=== PATIENT | female | born 1945 | race Caucasian/White ===

== ENCOUNTER → 2018-12-31 | Outpatient (CLI) | payer MEDICARE, OTHER, SELFPAY ==
[2018-12-31 13:24] LABS: Anion Gap 6 (5-15); BUN 15 mg/dL (7-18); Calcium,Total 9.2 mg/dL (8.5-10.1); Chloride 111 mmol/L (98-107); Cholesterol 216 mg/dL (200); Creatinine, Serum 0.62 mg/dL (0.55-1.02); EST Glomerular Filtration Rate 99 mL/min (>60); Est Glom Filt Rate - Afr Amer 120 mL/min (>60); Glucose 90 mg/dL (74-106); High Density Lipoprotein 79 mg/dL; Sodium Level 144 mmol/L (136-145); Triglycerides 43 mg/dL; Very Low Density Lipoprotein 9 mg/dL (5-40)
== END | disposition home or self-care (01) ==
PROVIDERS: Family Provider Family Medicine; PCP Family Medicine; Visit Provider Family Medicine
DX: Z00.00 Encounter for general adult medical examination without abnormal findings (principal)
CPT/HCPCS: 36415; 80048; 80061

== ENCOUNTER 2019-06-20 08:14 | Day surgery (SDC) | payer MEDICARE, OTHER, SELFPAY ==
[2019-05-26 08:23] VITALS: BMI 24.3
--- NOTE | 2019-05-26 10:21 | HP_ITS ---
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 Is patient in pain?: Yes (bilateral wrists) Allergies acetaminophen [From Percocet] Allergy (Mild, Verified 05/26/19 08:24) Unknown oxycodone [From Percocet] Allergy (Mild, Verified 05/26/19 08:24) Unknown Medications NK 05/26/19 [History Confirmed 05/26/19] [facility] Medical History (Updated 05/26/19 @ 10:19 by Víctor Stahl MD) Carpal tunnel syndrome on both sides (Acute) Surgical History S/P bunionectomy (Acute) S/P cataract extraction (Acute) s/p finger surgery (Acute) Family History Mother Heart disease CVA (cerebral vascular accident) Social History (Updated 05/26/19 @ 10:21 by Víctor Stahl MD) Smoking Status: Never smoker alcohol intake: current alcohol intake frequency: a few times a month HPI HPI HPI: KAREEM VÁSQUEZ, is a 73 F who presents to the office today for HPI HPI Surgical H&P: Yes HPI: KAREEM VÁSQUEZ, is a 73 F who presents to the office today for surgical consultation for bilateral carpal tunnel syndrome. The patient is referred by Dr. Jose Velasquez and a written copy of my surgical consult recommendations will be returned to him. The patient has had at least a 2-year greater history of bilateral hand pain numbness tingling loss of fine motor control and artist suspect strength. 2 years ago she had a give up kayaking because of it. She states that at night if she keeps her hands perfectly flat and still that her symptoms are less severe. On January 13, 2019 at [facility] she had nerve conduction test performed. 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 Similar finding on the left. The patient herself has noticed atrophy of her thenar eminences bilaterally. She is right arm dominant. 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 General General: No weight change, appetite, fatigue, colon cancer, breast cancer or weakness HEENT HEENT: Yes eye injury and eye surgery; no difficulty swallowing, swollen glands or hoarseness Endo Endocrine: No thyroid disease, diabetes mellitus, thyroid cancer, Hair loss, heat intolerance or cold intolerance Skin Skin: No rash or changing moles Breast Breast: No left breast lump, right breast lump, nipple discharge, breast pain, abnormal mammogram, abnormal US or breast enlargement Musc Musculoskeletal: Yes arthritis; no back problems, rheumatoid arthritis, gout or joint pain Cardio Cardiovascular: No murmur, pacemaker, heart disease, atrial fibrillation, high blood pressure, heart attack, heart stent, palpitations, shortness of breat with exertion or chest pain Psych Psychiatric: No depression, anxiety or hearing voices Resp Respiratory: No shortness of breath, No sleep apnea, No cough, No COPD, No asthma, No emphysema, No wheezing Gastro Gastrointestinal: No abdominal pain, No nausea or vomiting, No diarrhea, No constipation, No blood in stool, No acid reflux, No hemorrhoids, No ulcers, No gallbladder problem, No black,tarry stools Mal Hematologic: No blood thinners, No blood disorders, No bleeding, No anemia, No blood clots Neuro Neurologic: No system reviewed and no additional complaints, except as docu, No as per HPI, No abnormal walking, No abnormal hearing, No abnormal movements, No abnormal speech, No behavioral changes, No burning sensations, No confusion, No seizure-like activity, No unsteadiness, No dizziness, No localized weakness, No frequent falls, No headache(s), No lack of coordination, No loss of vision, No memory loss, Yes numbness, No other visual disturbances, No radiating pain, No restless legs, No sensory deficit, No fainting, Yes tingling, No tremor(s), No weakness, No other Exam Const General: cooperative, healthy appearing, comfortable, no acute distress Nutritional Appearance: average body habitus Orientation: alert, awake, oriented x3 HENMT Head: normal to inspection Chest Breast Palpation: No nipple discharge Resp Effort & Inspection: normal respiratory effort Auscultation: clear to auscultation bilaterally Cardio Rate: regular rate Rhythm: regular rhythm Heart Sounds: no murmurs GI Palpation: soft, no hepatosplenomegaly Auscultation: normal bowel sounds Extrem Other: Bilateral wrists on the right ulnar side and left ulnar side volar surface there is some fibrofatty fullness. Ultrasound of the right demonstrated what appeared to be more of a mixed echogenicity pattern not consistent with a simple cyst. Bilaterally there is evidence are thenar atrophy Lumber Checker strength seems intact Radial pulses 2+ bilaterally Psych Affect: normal affect Assessment & Plan Problems 1. Carpal tunnel syndrome on both sides G56.03 Plan Bilateral carpal tunnel syndrome. The patient is right arm dominant. She states that her left hand is symptomatically worse. This appears to have been ongoing now for several years. She is demonstrating denervation. I have offered her a left carpal tunnel release. In detail I discussed the technique, benefits, risks and alternatives. No guarantees of success have been offered. She has had an opportunity to ask and have questions answered. Pending the results and improvement of her left hand the patient would then be interested in pursuing treatment of her right hand. The patient is planning on going overseas to [facility] in the near future. She is interested in scheduling upon her return. I appreciate the opportunity of assisting with her surgical care CC: Dr. Jose Stahl M.D., F.A.C.S. Coding Level of Care Code 47952 Diagnoses Carpal tunnel syndrome on both sides G56.03 05/26/19 1021 <Electronically signed by Víctor sands MD> Date _ Víctor Stahl MD I have re-examined the patient. There are no clinical changes since date of exam.
[2019-06-20 08:59] VITALS: BP 147/82; PULSE 71; RESP 15; TEMP 36.9; O2SAT 99; BMI 25.3
[2019-06-20] MEDS: Lactated Ringers 1,000 ML 100 ML IV (09:10)
--- NOTE | 2019-06-20 10:18 | DCINST_ITS ---
Discharge Diet: Light diet - advance as tolerated - if you have questions about your diet instructions, please talk to you doctor. Discharge Activity: May Not Drive - for 1 week or while taking narcotic pain medicine. May shower in (days): 1 - You will need to place your left hand in a bag to keep it dry from water Lifting Restrictions: 10 pounds Call your doctor if your incision/area has: Continuous Slow Oozing, Sudden Increased Bleeding, Increased Pain/ Swelling, Increased Redness, Foul Smelling Discharge Call your doctor if you observe: Fever of 101 or Higher Suture Line Care: Avoid Pulling/Pushing, Avoid Pinching/Bending Additional Dressing/Incision Instructions:: Elevate your left hand for comfort. Please keep it clean and dry. No heavy lifting or straining. Allergies/Adverse Reactions: Allergies oxycodone [From Percocet] Allergy (Mild, Verified 06/20/19 08:54) Unknown Medications to take at Discharge traMADol [Ultram] 50 mg PO Q4H PRN PRN 2 Days #5 tablet 06/20/19 The following prescriptions were given: traMADol [Ultram] 50 mg PO Q4H PRN PRN 2 Days #5 tablet PRN Reason: Pain Score 1-10/10 Transmission Status: Sent to [facility] Primary Care Physician: Jose Velasquez MD [Primary Care Provider] - Test Results: Test results from this visit will be discussed in further detail at your follow- up appointment, if applicable. Please Follow Up With: Víctor Stahl MD - [phone] When: Call to make an appointment to be seen in about 7 days--Thursday
[2019-06-20] MEDS: Bacitracin 500 UNITS/GM PACKET (10:31)
[2019-06-20] MEDS: Bupivacaine Mpf 0.5% 30 ML VIAL (10:33)
--- NOTE | 2019-06-20 10:38 | OP.PCM_ITS ---
Problem List (1) Left carpal tunnel syndrome Status: Acute Report of Operation Date of Procedure: 06/20/19 Pre-Operative Diagnosis: Left carpal tunnel syndrome Post-Operative Diagnosis: Same Surgery/Procedure Performed:: Left carpal tunnel release Description of Surgical Findings:: Timeout and informed consent was obtained. 73-year-old female was taken out from placement table. The left hand was sterilely prepped and draped after [place] block was performed to 250 mmHg pressure for a total of 21 minutes. A curvilinear incision was made the base of the left palm after sterile prep and draping. The palmar fascia was then identified it was incised and then was incised to the proximal wrist crease along the fourth ray to the mid palm. Good release the palmar fascia was easily achieved. Median nerve intact. Subdermal tissues were approximated with interrupted 4-0 chromic. Skin edges approximated simple sutures of 5-0 nylon. Antibiotic ointment Telfa 4 x 4 soft roll Ignacio wrap applied. Sponge and instrument and needle counts reported surgical correct. The edd-incisional area had been additionally anesthetized with 1 cc of 0.5% Marcaine. Specimens none. Drains none. Blood loss minimal. Víctor Stahl M.D., F.A.C.S. Type of Anesthesia:: Hesham Aguilera, Local Anesthesiologist: Ino Davis
[2019-06-20 10:45] VITALS: BP 116/68; BP 147/82; PULSE 74; RESP 16; TEMP 36.6; O2SAT 18
[2019-06-20 10:50] VITALS: BP 131/72; BP 147/82; PULSE 67; RESP 16; O2SAT 97
[2019-06-20 10:55] VITALS: BP 131/70; BP 147/82; PULSE 64; RESP 16; O2SAT 94
[2019-06-20 11:00] VITALS: BP 134/72; BP 147/82; PULSE 62; RESP 16; TEMP 37; O2SAT 97
[2019-06-20 11:30] VITALS: BP 147/82
== END 2019-06-20 12:26 | disposition home or self-care (01) ==
LOC: SDC 08:17 → AC 08:20
PROVIDERS: Family Provider Family Medicine; PCP Family Medicine; Referring Provider Surgery; Visit Provider Surgery
PROC: (CPT 64721; principal; 2019-06-20 10:00)
DX: G56.03 Carpal tunnel syndrome, bilateral upper limbs (principal); M19.90 Unspecified osteoarthritis, unspecified site; Z78.0 Asymptomatic menopausal state
CPT/HCPCS: 01810; 64721; J7120; J2405

== ENCOUNTER 2019-07-14 10:59 | Day surgery (SDC) | payer MEDICARE, OTHER, SELFPAY ==
[2019-05-26 08:23] VITALS: BMI 24.3
--- NOTE | 2019-05-26 10:21 | HP_ITS ---
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 Is patient in pain?: Yes (bilateral wrists) Allergies acetaminophen [From Percocet] Allergy (Mild, Verified 05/26/19 08:24) Unknown oxycodone [From Percocet] Allergy (Mild, Verified 05/26/19 08:24) Unknown Medications NK 05/26/19 [History Confirmed 05/26/19] [facility] Medical History (Updated 05/26/19 @ 10:19 by Víctor Stahl MD) Carpal tunnel syndrome on both sides (Acute) Surgical History S/P bunionectomy (Acute) S/P cataract extraction (Acute) s/p finger surgery (Acute) Family History Mother Heart disease CVA (cerebral vascular accident) Social History (Updated 05/26/19 @ 10:21 by Víctor Stahl MD) Smoking Status: Never smoker alcohol intake: current alcohol intake frequency: a few times a month HPI HPI HPI: KAREEM VÁSQUEZ, is a 73 F who presents to the office today for HPI HPI Surgical H&P: Yes HPI: KAREEM VÁSQUEZ, is a 73 F who presents to the office today for surgical consultation for bilateral carpal tunnel syndrome. The patient is referred by Dr. Jose Velasquez and a written copy of my surgical consult recommendations will be returned to him. The patient has had at least a 2-year greater history of bilateral hand pain numbness tingling loss of fine motor control and t rail turner strength. 2 years ago she had a give up kayaking because of it. She states that at night if she keeps her hands perfectly flat and still that her symptoms are less severe. On January 13, [address] [facility] she had nerve conduction test performed. 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 Similar finding on the left. The patient herself has noticed atrophy of her thenar eminences bilaterally. She is right arm dominant. 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 General General: No weight change, appetite, fatigue, colon cancer, breast cancer or weakness HEENT HEENT: Yes eye injury and eye surgery; no difficulty swallowing, swollen glands or hoarseness Endo Endocrine: No thyroid disease, diabetes mellitus, thyroid cancer, Hair loss, heat intolerance or cold intolerance Skin Skin: No rash or changing moles Breast Breast: No left breast lump, right breast lump, nipple discharge, breast pain, abnormal mammogram, abnormal US or breast enlargement Musc Musculoskeletal: Yes arthritis; no back problems, rheumatoid arthritis, gout or joint pain Cardio Cardiovascular: No murmur, pacemaker, heart disease, atrial fibrillation, high blood pressure, heart attack, heart stent, palpitations, shortness of breat with exertion or chest pain Psych Psychiatric: No depression, anxiety or hearing voices Resp Respiratory: No shortness of breath, No sleep apnea, No cough, No COPD, No asthma, No emphysema, No wheezing Gastro Gastrointestinal: No abdominal pain, No nausea or vomiting, No diarrhea, No constipation, No blood in stool, No acid reflux, No hemorrhoids, No ulcers, No gallbladder problem, No black,tarry stools Mal Hematologic: No blood thinners, No blood disorders, No bleeding, No anemia, No blood clots Neuro Neurologic: No system reviewed and no additional complaints, except as docu, No as per HPI, No abnormal walking, No abnormal hearing, No abnormal movements, No abnormal speech, No behavioral changes, No burning sensations, No confusion, No seizure-like activity, No unsteadiness, No dizziness, No localized weakness, No frequent falls, No headache(s), No lack of coordination, No loss of vision, No memory loss, Yes numbness, No other visual disturbances, No radiating pain, No restless legs, No sensory deficit, No fainting, Yes tingling, No tremor(s), No weakness, No other Exam Const General: cooperative, healthy appearing, comfortable, no acute distress Nutritional Appearance: average body habitus Orientation: alert, awake, oriented x3 HENMT Head: normal to inspection Chest Breast Palpation: No nipple discharge Resp Effort & Inspection: normal respiratory effort Auscultation: clear to auscultation bilaterally Cardio Rate: regular rate Rhythm: regular rhythm Heart Sounds: no murmurs GI Palpation: soft, no hepatosplenomegaly Auscultation: normal bowel sounds Extrem Other: Bilateral wrists on the right ulnar side and left ulnar side volar surface there is some fibrofatty fullness. Ultrasound of the right demonstrated what appeared to be more of a mixed echogenicity pattern not consistent with a simple cyst. Bilaterally there is evidence are thenar atrophy Elevators Inspector strength seems intact Radial pulses 2+ bilaterally Psych Affect: normal affect Assessment & Plan Problems 1. Carpal tunnel syndrome on both sides G56.03 Plan Bilateral carpal tunnel syndrome. The patient is right arm dominant. She states that her left hand is symptomatically worse. This appears to have been ongoing now for several years. She is demonstrating denervation. I have offered her a left carpal tunnel release. In detail I discussed the technique, benefits, risks and alternatives. No guarantees of success have been offered. She has had an opportunity to ask and have questions answered. Pending the results and improvement of her left hand the patient would then be interested in pursuing treatment of her right hand. The patient is planning on going overseas to [facility] in the near future. She is interested in scheduling upon her return. I appreciate the opportunity of assisting with her surgical care CC: Dr. Jose Stahl M.D., F.A.C.S. Coding Level of Care Code 48307 Diagnoses Carpal tunnel syndrome on both sides G56.03 Plan to proceed with a right carpal tunnel release. Patient has had an opportunity to ask and have questions answered. We will proceed at her discretion. She has had a successful treatment of her left forearm carpal tunnel Víctor Stahl M.D., F.A.C.S.
[2019-07-14 11:36] VITALS: BP 147/82; PULSE 66; RESP 16; TEMP 36.9; O2SAT 95; BMI 25.0
[2019-07-14] MEDS: Lactated Ringers 1,000 ML 100 ML IV (11:46)
--- NOTE | 2019-07-14 13:05 | DCINST_ITS ---
Discharge Diet: Light diet - advance as tolerated Discharge Activity: May Not Drive - for 2-3 days or while taking narcotic pain medications., - - Do not drive, work heavy equipment or sign legal documents for 24 hours. May shower in (days): 1 - with the bandage in place. Additional Activity Instructions:: Pain medication may cause nausea. You should typically eat light foods as you take your pain medications. Pain medication may also cause constipation. If this is a problem for you, please discuss with your doctor. Call your doctor if your incision/area has: Continuous Slow Oozing, Sudden Increased Bleeding, Increased Pain/ Swelling, Increased Redness, Foul Smelling Discharge Call your doctor if you observe: Fever of 101 or Higher Suture Line Care: Avoid Pulling/Pushing, Avoid Pinching/Bending Additional Dressing/Incision Instructions:: Please elevate your right hand for comfort. Keep the elastic wrap clean and dry. Allergies/Adverse Reactions: Allergies oxycodone [From Percocet] Allergy (Mild, Verified 07/14/19 11:35) Unknown Medications to take at Discharge NK 06/27/19 Primary Care Physician: Jose Velasquez MD [Primary Care Provider] - Test Results: Test results from this visit will be discussed in further detail at your follow- up appointment, if applicable. Please Follow Up With: Víctor Stahl MD - Please call [phone] to schedule an appointment. When: Office appointment on Thursday please 07/19/19
--- NOTE | 2019-07-14 14:38 | SUR.OPER ---
Pt was brought back to the OR, sedation given, when notified Dr was needed in another room, time between entering room and incision time represents this
[2019-07-14] MEDS: Bupivacaine Mpf 0.5% 30 ML VIAL (14:48)
[2019-07-14] MEDS: Neomycin/Bacitracin/Polymyxin Ointment 1 APPLIC (14:48)
--- NOTE | 2019-07-14 14:52 | OP.PCM_ITS ---
Report of Operation Date of Procedure: 07/14/19 Pre-Operative Diagnosis: Right carpal tunnel syndrome Post-Operative Diagnosis: Same Surgery/Procedure Performed:: Right carpal tunnel release Description of Surgical Findings:: Timeout and informed consent was obtained. 74-year-old female taken out from placement table underwent [place] block anesthesia. Tourniquet pressure to 250 mmHg pressure held for 27 minutes. The right hand was sterilely prepped and draped. A curvilinear incision made the base the right palm sharp dissection carried down through the subcu tissue the palmar fascia was incised median nerve identified protected the palmar fascia was incised to the proximal wrist crease and then along the fourth ray to the mid palm. Good release was felt to been achieved. The subdermal tissues were approximated up with 3-0 chromic. Skin is approximated simple sutures of 4-0 nylon. The edd-incisional areas anesthetized with 0.5% Marcaine a total of 3 cc was used. Antibiotic ointment Telfa 4 x 4 soft roll and Ignacio wrap applied. Sponge and instrument and needle counts were reported the surgeon be correct. Blood loss none. Specimens none. Drains none. Blood loss none. She was taken to the recovery area in satisfactory edition with apparent cavitation Víctor Stahl M.D., F.A.C.S. Type of Anesthesia:: Willy,Hesham, Local Anesthesiologist: Suresh Michaud
[2019-07-14 15:00] VITALS: BP 138/89; BP 147/82; PULSE 71; RESP 16; TEMP 36.6; O2SAT 99
[2019-07-14 15:05] VITALS: BP 125/95; BP 147/82; PULSE 70; RESP 16; O2SAT 94
[2019-07-14 15:10] VITALS: BP 118/98; BP 147/82; PULSE 65; RESP 16; O2SAT 98
[2019-07-14 15:15] VITALS: BP 137/85; BP 147/82; PULSE 67; RESP 16; TEMP 36.4; O2SAT 98
[2019-07-14] MEDS: Acetaminophen 325 MG Tablet 650 MG PO (15:38)
[2019-07-14 16:12] VITALS: BP 123/67; BP 147/82; PULSE 78; RESP 16; TEMP 36.2; O2SAT 95
== END 2019-07-14 16:15 | disposition home or self-care (01) ==
LOC: SDC 11:00 → AC 11:01
PROVIDERS: Family Provider Family Medicine; PCP Family Medicine; Referring Provider Surgery; Visit Provider Surgery
PROC: (CPT 64721; principal; 2019-07-14 12:45)
DX: G56.03 Carpal tunnel syndrome, bilateral upper limbs (principal); Z78.0 Asymptomatic menopausal state
CPT/HCPCS: 64721; J7120

== ENCOUNTER 2021-01-01 08:25 | Day surgery (SDC) | payer MEDICARE, OTHER, SELFPAY ==
[2020-12-28 09:36] VITALS: BMI 25.0
--- NOTE | 2021-01-01 08:46 | PCM.HP.BLA ---
History and Physical Date of Admission: 01/01/21 Date of Service:? 12/28/20 MR#: [id number] Acct: [id number] Name:?KAREEM VÁSQUEZ :1945 Age/Sex:?75/F Provider:Dr. Ana Avelar MD Rep #:[id number] Location:[facility] Status:Signed Intake Vital Signs ? 12/28/2108:35 12/28/2108:36 Height 5 ft ? Weight: 129 lb 8 oz ? BMI 25.2 25.0 BP 152/97 H ? Blood Pressure Location Rt brachial ? Position Sitting ? Respiration 18 ? Pulse 81 ? Pulse Source NIBP ? Temp 97.6 F L ? Temp Source Temporal ? Pulse Oximetry (%) 98 ? Oxygen Delivery Method room air ? 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 Carpal tunnel syndrome on both sides Surgical History? S/P bunionectomy S/P cataract extraction s/p finger surgery s/p left carpal tunnel release s/p right carpal tunnel release Family History?(Updated 12/28/20 @ 09:27 by Britta Truong) Mother Heart disease CVA (cerebral vascular accident)Father Emphysema of lung DementiaGrandmother Cancer ?? ? lymphoma CVA (cerebral vascular accident) Social History? Smoking Status:? Never smoker alcohol intake:? current alcohol intake frequency: a few times a month HPI HPI HPI: KAREEM VÁSQUEZ, is a 75 F who presents to the office today for positive Cologuard.? Patient notes her last colonoscopy was maybe in 2008 at [facility].? Patient states she has bowel once daily denies any blood denies any abdominal pain.? Patient states for the last 3 days she has had some reflux symptoms and did start some [id number] Prilosec.? Patient states this started when she found out the results of the Cologuard test.? Patient denies any family history of colon cancer.? Patient has had both doses of the Covid vaccine. ROS Gastro Gastrointestinal: No abdominal pain, No nausea or vomiting, No diarrhea, No constipation, No blood in stool, Yes acid reflux, No hemorrhoids, No ulcers, No gallbladder problem and No black,tarry stools Exam Const General: cooperative, healthy appearing, comfortable and no acute distress Neck Neck: normal visual inspection Resp Effort & Inspection: normal respiratory effort Cardio Rate: regular rate GI Inspection: non-distended Palpation: soft, no guarding and nontender Skin General: no rashes or lesions noted Neuro General: patient oriented x3 Psych Affect: normal affect COVID (Procedure Consent) Procedure Criteria Procedure Criteria: Yes Elective?The surgeon/proceduralist and patient have discussed in detail the risk of exposure to and/or potential harm posed by the COVID-19 virus with having a surgery/procedure at this time versus the risk of? delaying the surgery/procedure. It is not possible to know either the risk of delaying the surgery or procedure or chance of getting an infection with perfect accuracy, but a joint decision was made between the patient and the surgeon/proceduralist ?to proceed at this time with the scheduled surgery/procedure as indicated on the consent form. Assessment and Plan Assessment and Plan (1) Positive colorectal cancer screening using Cologuard test: ?Status:?Acute ?Plan - Dr. Ana Avelar MD: Okay to complete at 2-week dose of the Prilosec [id number]. I have discussed the above with the patient. I have offered the patient EGD and colonoscopy for evaluation. I have explained the risks/benefits of the procedure and described the procedure.? I have discussed the risks with the patient, including but not limited to:? infection, bleeding, perforation of the GI tract requiring emergency surgery, inability to complete the procedure, injury to any internal organs, complications of anesthesia, etc. - the patient understands and agrees to proceed. I have answered all the patient's questions to the patient's satisfaction and the patient has no further questions. The patient has been given instructions for the colon cleansing preparation.? 1 day of clears, MiraLAX Dulcolax split prep. Ana Avelar M.D. Pager: [phone] [facility] [address] [place] [address], [address] [place] [address] Office: [phone] (2) GERD (gastroesophageal reflux disease): ?Status:?Acute Plan Details Other Orders: ?Orders: ? Colonoscopy Today ? ? ? EGD Today ? ? Coding Level of Care Code Off vis,new,level 3 Diagnoses Positive colorectal cancer screening using Cologuard test? R19.5 GERD (gastroesophageal reflux disease)? K21.9 12/28/20 0953 <Electronically signed by Ana Avelar MD> Date Ana Avelar MD
[2021-01-01 08:59] VITALS: BP 124/70; PULSE 61; RESP 16; TEMP 37; O2SAT 98; BMI 23.9
[2021-01-01] MEDS: Lactated Ringers 1,000 ML 100 ML IV (09:13)
--- NOTE | 2021-01-01 09:30 | EGD_PTH ---
PATIENT: KAREEM VÁSQUEZ LOC: EN U#:[id number] AGE/SX: 75/F ROOM: RE01/01/[address]: Dr. Ana Avelar MD : 1945 BED: DIS: 01/01/2021 SPEC #: [id number] RECD: 01/01/21 11:31 STATUS: SETH REBhargav #: [id number] HENRY: 01/01/21 09:[address]: Ana Avelar DEPT: SURGICAL PATHOLOGY RECD BY: Irma Carr ENTERED: 01/01/21 11:45 SP TYPE: EGD BIOPSY OT DR: Dr. Jose Velasquez MD Tissues: A - Gastric mucous membrane B - Gastric mucous membrane C - Gastric mucous membrane D - Cecum, NOS E - Transverse colon Procedures: Special Stain Group II Surgery Specimen Level IV Alcian Blue/PAS (control) HEADER OPERATION: Colonoscopy, EGD ([facility] [place]) PRE-OP DIAGNOSIS: Positive Cologuard, GERD TISSUE SUBMITTED: A ? Antrum for H. pylori and path, B ? Gastric polyp biopsy, C ? GE junction, D ? Cecum near appendiceal orifice biopsy of polyp, E ? Transverse colon biopsy of polyp MICROSCOPIC DIAGNOSIS A. Gastric antrum, biopsy: Mild chronic gastritis. See comment. B. Gastric polyp, biopsy: Consistent with fundic gland polyp. C. GE junction, biopsy: Gastric mucosa with mild chronic inflammation. No evidence of goblet cell metaplasia. See comment. D. Cecal polyp, biopsy: Tubular adenoma. E. Transverse colon polyp, biopsy: Fragments of hyperplastic polyp. AM:ese 01/02/2021 COMMENT A. The results of immunohistochemistry for Helicobacter pylori will be reported separately ([id number]). C. Alcian blue/PAS stain with matched control supports the above diagnosis. MICROSCOPIC DESCRIPTION Slides are reviewed. GROSS DESCRIPTION A - Received in fixative is one container labeled with the patient's name and designated antrum biopsy. The specimen consists of one irregular fragment of light coronel soft tissue that measures 0.7 x 0.2 x 0.1 cm. The specimen is totally submitted in one cassette. B - Received in fixative is one container labeled with the patient's name and designated gastric polyp biopsy. The specimen consists of multiple irregular fragments of light coronel soft tissue that in aggregate measure 1.5 x 0.5 x 0.1 cm. The specimen is totally submitted in one cassette. C - Received in fixative is one container labeled with the patient's name and designated GE junction. The specimen consists of one irregular fragment of light coronel soft tissue that measures 0.3 x 0.2 x 0.1 cm. The specimen is totally submitted in one cassette. D - Received in fixative is one container labeled with the patient's name and designated cecum near appendiceal orifice biopsy of polyp. The specimen consists of multiple irregular fragments of light coronel soft tissue that in aggregate measure 1 x 0.2 x 0.1 cm. The specimen is totally submitted in one cassette. E - Received in fixative is one container labeled with the patient's name and designated transverse colon biopsy of polyp. The specimen consists of multiple irregular fragments of light coronel soft tissue that in aggregate measure 1 x 0.2 x 0.1 cm. The specimen is totally submitted in one cassette. / SJ:rg 01/01/21 TC:5 CPT: 26315 x5, 32616
--- NOTE | 2021-01-01 09:30 | IMM_PTH ---
PATIENT: KAREEM VÁSQUEZ LOC: EN U#:[id number] AGE/SX: 75/F ROOM: RE01/01/[address]: Dr. Ana Avelar MD : 1945 BED: DIS: 01/01/2021 SPEC #: [id number] RECD: 01/01/21 12:03 STATUS: SETH REQ #: [id number] HENRY: 01/01/21 09:[address]: Ana Avelar DEPT: IMMUNOHISTOCHEMISTRY RECD BY: Sondra López ENTERED: 01/01/21 12:03 SP TYPE: IMMUNO OTHR DR: Dr. Jose Velasquez MD Tissues: A - Stomach, NOS Procedures: H Pylori (initial) PHYSICIAN & INSTITUTION [place] [address] SPECIMEN INFORMATION: Tissue Source: A ? Antrum biopsy Clinical Info: Positive ROLANDO Mclain Specimen Number: [id number] CPT code: 32701 METHODOLOGY: Deparaffinized sections of prefer/formalin-fixed tissue or PAP/DQ stained slides are incubated with monoclonal/polyclonal antibodies/oligonucleotide probes. Localization is made via biotin free immunoperoxidase method. Appropriate controls are performed and reacted as expected. Results on target cell population are indicated in the following table: RESULTS: ANTIBODY / CLONE RESULT Block A H Pylori (polyclonal) negative These tests were developed and their performance characteristics determined by [facility]. They may not have been cleared or approved by the U.S. Food and Drug Administration. The FDA has determined that such clearance or approval is not necessary. INTERPRETATION: A. Antrum biopsy: Negative for Helicobacter pylori organisms. AM:ese 01/02/2021
[2021-01-01 10:15] VITALS: BP 118/77; BP 124/70; PULSE 67; RESP 16; TEMP 36.4; O2SAT 99
--- NOTE | 2021-01-01 10:18 | OP.EGD_ITS ---
Patient Name: Billie Kellogg Procedure Date: 01/01/2021 9:28 AM Date of : 1945 Age: 75 Procedure: Upper GI endoscopy Indications: Heartburn, +cologuard Providers: Ana Avelar MD Medicines: Monitored Anesthesia Care Patient Profile: This is a 75 year old female. Complications: No immediate complications. Procedure: Pre-Anesthesia Assessment: - Prior to the procedure, a History and Physical was performed, and patient medications and allergies were reviewed. The patient's tolerance of previous anesthesia was also reviewed. The risks and benefits of the procedure and the sedation options and risks were discussed with the patient. All questions were answered, and informed consent was obtained. Prior Anticoagulants: The patient has taken aspirin, last dose was 1 day prior to procedure. ASA Grade Assessment: Per anesthesia. After reviewing the risks and benefits, the patient was deemed in satisfactory condition to undergo the procedure. After obtaining informed consent, the endoscope was passed under direct vision. Throughout the procedure, the patient's blood pressure, pulse, and oxygen saturations were monitored continuously. The Endoscope was introduced through the mouth, and advanced to the second part of duodenum. The upper GI endoscopy was accomplished without difficulty. The patient tolerated the procedure well. Scope In: 9:36:05 AM Scope Out: 9:48:27 AM Total Procedure Duration Time 0 hours 12 minutes 22 seconds Findings: The Z-line was irregular and was found 38 cm from the incisors. Biopsies were taken with a cold forceps for histology. A small hiatal hernia was present. Moderately erythematous mucosa without bleeding was found in the gastric body and in the gastric antrum. Biopsies were taken with a cold forceps for histology. Biopsies were taken with a cold forceps for Helicobacter pylori cultures. The examined duodenum was normal. Three less than 5 mm semi-sessile polyps with no bleeding and no stigmata of recent bleeding were found in the gastric body. The polyp was removed with a cold biopsy forceps. Resection and retrieval were complete. Segmental moderate mucosal variance characterized by discoloration and longitudinal markings was found at the gastroesophageal junction. Biopsies were taken with a cold forceps for histology. Impression: - Z-line irregular, 38 cm from the incisors. Biopsied. - Small hiatal hernia. - Erythematous mucosa in the gastric body and antrum. Biopsied. - Normal examined duodenum. - Three gastric polyps. Resected and retrieved. - Esophageal mucosal variant. Biopsied. Recommendation: - Await pathology results. - Discharge patient to home. - Resume previous diet. - Continue present medications. - Use Protonix (pantoprazole) 40 mg PO daily. Procedure Code(s): --- Professional --- 39075, Esophagogastroduodenoscopy, flexible, transoral; with biopsy, single or multiple Diagnosis Code(s): --- Professional --- K22.8, Other specified diseases of esophagus K44.9, Diaphragmatic hernia without obstruction or gangrene K31.89, Other diseases of stomach and duodenum K31.7, Polyp of stomach and duodenum R12, Heartburn CPT copyright 2017 [employer]. All rights reserved. The codes documented in this report are preliminary and upon soft work cigar machine operator review may be revised to meet current compliance requirements. MD Ana Mendoza MD 01/01/2021 10:18:00 AM This report has been signed electronically. Number of Addenda: 0 Note Initiated On: 01/01/2021 9:28 AM
--- NOTE | 2021-01-01 10:18 | OP.CCLET_ITS ---
01/01/2021 Jose Velasquez Re : Upper GI endoscopy procedure for Billie Kellogg Dear Ron This procedure was performed on Friday, January 01, 2021. My impressions and recommendations are as follows: Impressions : - Z-line irregular, 38 cm from the incisors. Biopsied. - Small hiatal hernia. - Erythematous mucosa in the gastric body and antrum. Biopsied. - Normal examined duodenum. - Three gastric polyps. Resected and retrieved. - Esophageal mucosal variant. Biopsied. Recommendations : - Await pathology results. - Discharge patient to home. - Resume previous diet. - Continue present medications. - Use Protonix (pantoprazole) 40 mg PO daily. My findings are described in the full procedure note, which is enclosed. If I can be of further assistance, please feel free to contact me at Doctor phone number(s): , Work: . Sincerely, MD Ana Mendoza MD 01/01/2021 10:18:00 AM This report has been signed electronically.
[2021-01-01 10:20] VITALS: BP 124/70; BP 126/77; PULSE 65; RESP 16; O2SAT 98
--- NOTE | 2021-01-01 10:22 | OP.CCLET_ITS ---
01/01/2021 Jose Velasquez Re : Colonoscopy procedure for Billie Kellogg Dear Ron This procedure was performed on Friday, January 01, 2021. My impressions and recommendations are as follows: Impressions : - Hemorrhoids found on perianal exam. - No specimens collected. Recommendations : - Discharge patient to home. - High fiber diet. - Continue present medications. - Await pathology results. - Repeat colonoscopy in 5 years for surveillance based on pathology results. My findings are described in the full procedure note, which is enclosed. If I can be of further assistance, please feel free to contact me at Doctor phone number(s): , Work: . Sincerely, MD Ana Mendoza MD 01/01/2021 10:22:13 AM This report has been signed electronically.
--- NOTE | 2021-01-01 10:22 | OP.COLON_ITS ---
Patient Name: Billie Kellogg Procedure Date: 01/01/2021 9:49 AM Date of : 1945 Age: 75 Procedure: Colonoscopy Indications: Positive Cologuard test Providers: Ana Avelar MD Medicines: Monitored Anesthesia Care Patient Profile: This is a 75 year old female. Last Colonoscopy: more than 10 years ago. Complications: No immediate complications. Procedure: Pre-Anesthesia Assessment: - Prior to the procedure, a History and Physical was performed, and patient medications and allergies were reviewed. The patient's tolerance of previous anesthesia was also reviewed. The risks and benefits of the procedure and the sedation options and risks were discussed with the patient. All questions were answered, and informed consent was obtained. Prior Anticoagulants: The patient has taken aspirin, last dose was 1 day prior to procedure. ASA Grade Assessment: Per anesthesia. After reviewing the risks and benefits, the patient was deemed in satisfactory condition to undergo the procedure. After I obtained informed consent, the scope was passed under direct vision. Throughout the procedure, the patient's blood pressure, pulse, and oxygen saturations were monitored continuously. The colonoscope was introduced through the anus and advanced to the cecum, identified by the appendiceal orifice, ileocecal valve and palpation. The colonoscopy was performed without difficulty. The patient tolerated the procedure well. The quality of the bowel preparation was good. Scope In: 9:50:33 AM Scope Withdrawal Time 0 hours 12 minutes 26 seconds Scope Out: 10:09:01 AM Total Procedure Duration Time 0 hours 18 minutes 28 seconds Findings: Hemorrhoids were found on perianal exam. Two sessile polyps were found in the transverse colon and cecum-near appendiceal oriface. The polyps were less than 5 mm in size. These polyps were removed with a cold biopsy forceps. Resection and retrieval were complete. A few small-mouthed diverticula were found in the sigmoid colon and hepatic flexure. Non-bleeding external and internal hemorrhoids were found. The hemorrhoids were Grade I (internal hemorrhoids that do not prolapse). The exam was otherwise without abnormality. Impression: - Hemorrhoids found on perianal exam. - No specimens collected. Recommendation: - Discharge patient to home. - High fiber diet. - Continue present medications. - Await pathology results. - Repeat colonoscopy in 5 years for surveillance based on pathology results. Procedure Code(s): --- Professional --- 18311, Colonoscopy, flexible; with biopsy, single or multiple Diagnosis Code(s): --- Professional --- K64.9, Unspecified hemorrhoids R19.5, Other fecal abnormalities CPT copyright 2017 [employer]. All rights reserved. The codes documented in this report are preliminary and upon credit director review may be revised to meet current compliance requirements. MD Ana Mendoza MD 01/01/2021 10:22:13 AM This report has been signed electronically. Number of Addenda: 0 Note Initiated On: 01/01/2021 9:49 AM
[2021-01-01 10:25] VITALS: BP 124/70; BP 131/73; PULSE 61; RESP 16; O2SAT 100
[2021-01-01 10:30] VITALS: BP 124/70; BP 128/74; PULSE 61; RESP 16; TEMP 36.3; O2SAT 100
[2021-01-01 10:44] VITALS: BP 124/70
== END 2021-01-01 11:01 ==
LOC: EN 08:26 → AC 08:27
PROVIDERS: PCP Family Medicine; Referring Provider Family Medicine; Visit Provider Surgery
PROC: 0DJD8ZZ Inspection of Lower Intestinal Tract, Via Natural or Artificial Opening Endoscopic (ICD-10-PCS; CPT 45378; principal; 2021-01-01 09:25)
DX: K29.50 Unspecified chronic gastritis without bleeding (principal); K31.7 Polyp of stomach and duodenum; K44.9 Diaphragmatic hernia without obstruction or gangrene; K21.9 Gastro-esophageal reflux disease without esophagitis; D12.0 Benign neoplasm of cecum; K63.5 Polyp of colon; K57.30 Diverticulosis of large intestine without perforation or abscess without bleeding; K64.9 Unspecified hemorrhoids; K64.8 Other hemorrhoids
CPT/HCPCS: 43239; 45378; 88305; 88313; 88342; J7120; J2405

== ENCOUNTER → 2023-01-01 | Outpatient (CLI) | payer MEDICARE, OTHER, SELFPAY ==
[2023-01-01 17:41] LABS: ALB/GLOB Ratio 0.9 RATIO (0.9-2.4); AST(SGOT) 25 U/L (15-37); Alanine Aminotransfer ALT/SGPT 27 U/L (13-56); Albumin, Serum 3.5 g/dL (3.2-5.0); Alkaline Phosphatase 109 U/L (45-117); Anion Gap 3 (5-15); BUN 11 mg/dL (7-18); Calcium,Total 9.5 mg/dL (8.5-10.1); Chloride 107 mmol/L (98-107); Creatinine, Serum 0.73 mg/dL (0.55-1.02); EST Glomerular Filtration Rate 82 mL/min (>60); Est Glom Filt Rate - Afr Amer 99 mL/min (>60); Globulin 3.7 g/dL (2.2-4.2); Glucose 92 mg/dL (74-106); Potassium 4.2 mmol/L (3.5-5.1); Protein, Total 7.2 g/dL (6.4-8.2); Sodium Level 139 mmol/L (136-145)
== END | disposition home or self-care (01) ==
PROVIDERS: PCP Family Medicine; Visit Provider Registered Nurse
DX: U07.1 COVID-19 (principal)
CPT/HCPCS: 80053

== ENCOUNTER → 2023-10-14 | Outpatient (CLI) | payer MEDICARE, OTHER, SELFPAY ==
--- OUTSIDE RECORDS SUMMARY | 2023-10-14 11:12 | XMS RPT_ITS | CCD ---
Author Name Unknown Address [address] [place] [address] Organization [facility] Results Test Name Value Interpretation Reference Range Facil ity Progress note 12-14-2020 Note Date & Type Note Facility 12-14-2020 Note HNO ID: [id number] Author: Terrell Pearce Service: ? Author Type: Seed Yeast Operator Type: Progress Notes Filed: 12/14/2020 9:34 AM Note Text: Radiology Service Progress Note PATIENT NAME: Billie Vásquez DATE OF SERVICE: December 14, 2020 TIME: 9:33 AM PATIENT IDENTITY VERIFICATION COMPLETED USING TWO (2) IDENTIFIERS: Name and Date of confirmed by patient verbally. FALL SCREENING: Has the patient had 2 falls in the last year or 1 fall with injury or currently using an Ambulatory Assistive Device (Walker, Cane, Wheelchair, Crutches, etc.)? No PATIENT GENDER DATA: Female. status: : No status: NO. PATIENT RELEVANT IMPLANT DATA REVIEWED: Not Applicable RADIOLOGY DEPARTMENT: Mammography PERIPHERAL IV DATA: Not applicable SIGNED BY: Terrell Pearce December 14, 2020 9:33 AM [facility] Clinical Note 10-02-2020 Note Date & Type Note Facility 10-02-2020 Note Patient Outreach ([facility]) BILLIE VÁSQUEZ ([id number]) 1945 F Date Time Provider Department 10/02/20 MELBA TAYLOR During your visit today, we recorded the following information about you: Allergies As of Date: 10/02/2020 Noted Allergy Reaction VICODIN (HYDROCODONE-ACETAMINOPHE*01/02/2009 8 - GI Upset Date Reviewed: 07/23/2019 Reviewed by: Nuvia Dee - Fully Assessed Order(s):SARS-COVID VACCINE 1ST DOSE APPT [[id number]] Order #: [id number] FUTURE Problem List As Of Date 10/02/2020 Noted Resolved Osteopenia [M89.9, M94.9] More... PURE HYPERCHOLESTEROLEM [E78.00] More... Family history of other cardiovascular diseases* 08/14/2016 More... ATROPHIC VAGINITIS [N95.2] 07/06/2007 Actinic keratosis [L57.0] 09/09/2007 08/14/2016 SEBORRHEIC KERATOSIS INFLAMED [L82.0] 09/09/2007 06/21/2008 SEBORRHEIC KERATOSIS NOS [L82.1] 09/09/2007 06/21/2008 VIRAL WARTS NOS [B07.9] 09/09/2007 06/21/2008 CHR SOLAR SKIN DAMAGE NOS [L57.8] 09/09/2007 06/21/2008 BENIGN NEOPLASM LG BOWEL [D12.6] 09/14/2007 More... More... Abnormal mammogram, unspecified [R92.8] 08/17/2009 08/14/2016 Encounter Status:Closed by [employer]-tra[employer], PRODUSER on 10/05/20 [facility] Summary Purpose Family History No Family History Records Found Advance Directives No Advanced Directives Records Found Additional Source Comments INFORMATION SOURCE (unrecogn ized section and content) FOR RECORDS PERTAINING TO PATIENTS WHO ARE OR HAVE BEEN ENROLLED IN A CHEMICAL DEPENDENCY/SUBSTANCEABUSE PROGRAM, SOME INFORMATION MAY BE OMITTED. This clinical summary was aggregated from multiple sources. Caution should be exercised in using it in the provision of clinical care. This summary normalizes information from multiple sources, and as a consequence, information in this document may materially change the coding, format and clinical context of patient data. In addition, data may be omitted in some cases. CLINICAL DECISIONS SHOULD BE BASED ON THE PRIMARY CLINICAL RECORDS. [facility]. provides no warranty or guarantee of the accuracy or completeness of information in this document.
[2023-10-14 12:30] LABS: Absolute Lymphocyte Count 1.41 X10^3/uL (0.83-4.51); Absolute Neutrophil Count 1.7 X10^3/uL (2.0-7.7); Basophil# 0.02 X10^3/uL; Basophil% 0.5 % (0-1); Eosinophil# 0.01 X10^3/uL; Eosinophils% 0.3 % (0-5); Hematocrit 46.4 % (37-47); Hemoglobin 15.3 g/dL (12.0-15.0); Lymphocyte # 1.41 X10^3/ul (0.83-4.51); Lymphocyte % 38.2 % (19-41); Mean Corpuscular Hgb 31.3 pg (27.0-32.0); Mean Corpuscular Volume 94.9 fL (81-99); Monocyte# 0.55 X10^3/uL; Monocyte% 14.9 % (0-10); NRBC Flagged by Analyzer 0 % (0-5); Neutrophil # 1.69 X10^3/uL (2.7-7.7); Neutrophil % 45.8 % (47-70); Platelet Count 167 K/mm3 (150-450); RBC Distribution Width CV 12.8 % (11.6-14.6); Red Blood Count 4.89 M/mm3 (4.2-5.4); White Blood Count 3.7 K/mm3 (4.4-11.0)
[2023-10-14 13:19] LABS: ALB/GLOB Ratio 1.1 RATIO (0.9-2.4); AST(SGOT) 13 U/L (15-37); Alanine Aminotransfer ALT/SGPT 18 U/L (13-56); Albumin, Serum 3.5 g/dL (3.2-5.0); Alkaline Phosphatase 114 U/L (45-117); Anion Gap 4 (5-15); BUN 12 mg/dL (7-18); Calcium,Total 9.4 mg/dL (8.5-10.1); Chloride 110 mmol/L (98-107); Cholesterol 242 mg/dL (200); Creatinine, Serum 0.63 mg/dL (0.55-1.02); EST Glomerular Filtration Rate 97 mL/min (>60); Est Glom Filt Rate - Afr Amer 117 mL/min (>60); Globulin 3.3 g/dL (2.2-4.2); Glucose 88 mg/dL (74-106); High Density Lipoprotein 80 mg/dL; Potassium 4.1 mmol/L (3.5-5.1); Protein, Total 6.8 g/dL (6.4-8.2); Sodium Level 140 mmol/L (136-145); Triglycerides 67 mg/dL; Very Low Density Lipoprotein 13 mg/dL (5-40)
== END | disposition home or self-care (01) ==
LOC: BIMLAB 10:30
PROVIDERS: PCP Internal Medicine; Visit Provider Internal Medicine
DX: E78.5 Hyperlipidemia, unspecified (principal)
CPT/HCPCS: 36415; 80053; 80061; 85025

== ENCOUNTER → 2023-11-11 | Outpatient (CLI) | payer MEDICARE, OTHER, SELFPAY ==
--- NOTE | 2023-11-11 15:10 | BI_ITS ---
MAMMOGRAPHY - BILATERAL SCREENING REASON FOR EXAM: Female, 78 years old. Routine annual screening examination. PERTINENT HISTORY: Aunt with breast cancer. Remote right stereotactic breast biopsy. TECHNIQUE: Digital bilateral breast radha (3D mammographic acquisition) in the CC and MLO projections. 2-D mediolateral oblique (MLO) and craniocaudad (CC) views of both breasts were obtained. CAD: Full Field Digital Mammography with Computer Added Detection was performed. COMPARISON: Comparison is made with prior outside examination dated December 14, 2020. FINDINGS: Breast Composition: The breasts are extremely dense, which lowers the sensitivity of mammography. There are no dominant masses or suspicious calcifications. A tissue clip marker is seen along the anterior upper slightly medial aspect of the right breast. No other significant abnormalities are identified. There has been no significant change since the prior study. BI/SCRN MAMM (CAD)W/RADHA BILAT IMPRESSION: Stable bilateral screening mammogram. Yearly follow-up mammogram recommended. (A) ASSESSMENT CATEGORY: BIRADS Category 2: Benign. A letter regarding these results will be sent to the patient by the facility within 30 days. Approximately 10% of breast cancers are not detected by mammography. A normal mammogram should not delay biopsy of a clinically suspicious abnormality. [id number] Electronically Signed: Alfa Estrada MD at 8:23 EDT ,
--- NOTE | 2023-11-11 15:15 | BD_ITS ---
STUDY: DUAL ENERGY X-RAY ABSORPTIOMETRY / DXA REASON FOR EXAM: Female, 78 years old. Z78.0 TECHNIQUE: Bone Mineral Density (BMD) measurements of lumbar spine and bilateral hips were obtained. COMPARISON: None. FINDINGS: Lumbar Spine (L1-L4): g/cm2 (0.894) / T-score (-1.4) / Z-score (1.2) Findings are suggestive of osteopenia with a low fracture risk. Left Femur Total: g/cm2 (0.721) / T-score (-1.8) / Z-score (0.2) Left Femoral Neck: g/cm2 (0.550) / T-score (-2.7) / Z-score (-0.5) Right Femur Total: g/cm2 (0.734) / T-score (-1.7) / Z-score (0.3) Right Femoral Neck: g/cm2 (0.568) / T-score (-2.5) / Z-score (-0.3) BD/Dexa Bone Density Study IMPRESSION: The patient is considered osteoporotic as outlined below according to World Baron Organization (WHO) criteria with a high fracture risk. Reference Information: The T-score is the number of standard deviations above or below the standard which is normal for young adults at their peak bone mineral density. The World Health Organization (WHO) interprets the T-scores as follows: Above -1 Normal bone density Between -1 and -2.5 Osteopenia Equal to / or below -2.5 Osteoporosis As a practical clinical guideline, osteopenia may be graded as follows: Mild -1 through -1.5 Moderate -1.6 through -2.0 Severe -2.1 through -2.4 The Z-score is the number of standard deviations above or below age-matched controls. A Z-score of less than -1.5 would be considered abnormal. References: 1. NIH Osteoporosis and Related Bone Diseases www osteo.org 2. International Society for Clinical Densitometry www iscd.org 3. National Osteoporosis Foundation www nof.org Electronically Signed: Alfa Estrada MD at 19:23 EDT ,
== END | disposition home or self-care (01) ==
LOC: OPBD 15:10
PROVIDERS: PCP Internal Medicine; Referring Provider Internal Medicine; Visit Provider Internal Medicine
DX: Z78.0 Asymptomatic menopausal state (principal); Z12.31 Encounter for screening mammogram for malignant neoplasm of breast
CPT/HCPCS: 77063; 77067; 77080

== ENCOUNTER → 2023-11-13 | Outpatient (CLI) | payer MEDICARE, OTHER, SELFPAY ==
[2023-11-13 15:56] LABS: Vitamin D,25 Hydroxy 22.4 ng/mL
[2023-11-13 15:59] LABS: Anion Gap 3 (5-15); BUN 14 mg/dL (7-18); BUN/Creat Ratio 20.8 RATIO (10-20); Calcium,Total 9.1 mg/dL (8.5-10.1); Chloride 107 mmol/L (98-107); Creatinine, Serum 0.67 mg/dL (0.55-1.02); EST Glomerular Filtration Rate 90 mL/min (>60); Est Glom Filt Rate - Afr Amer 109 mL/min (>60); Glucose 81 mg/dL (74-106); Potassium 4.2 mmol/L (3.5-5.1); Sodium Level 141 mmol/L (136-145)
== END | disposition home or self-care (01) ==
LOC: BIMLAB 13:43
PROVIDERS: PCP Internal Medicine; Referring Provider Internal Medicine; Visit Provider Internal Medicine
DX: M81.0 Age-related osteoporosis without current pathological fracture (principal)
CPT/HCPCS: 36415; 80048; 82306

== ENCOUNTER → 2024-05-25 | Outpatient (CLI) | payer MEDICARE, OTHER, SELFPAY ==
[2024-05-25 12:49] LABS: Anion Gap 6 (5-15); BUN 12 mg/dL (7-18); BUN/Creat Ratio 17.9 RATIO (10-20); Calcium,Total 9.2 mg/dL (8.5-10.1); Chloride 108 mmol/L (98-107); Creatinine, Serum 0.67 mg/dL (0.55-1.02); EST Glomerular Filtration Rate 90 mL/min (>60); Est Glom Filt Rate - Afr Amer 109 mL/min (>60); Glucose 89 mg/dL (74-106); Potassium 4.1 mmol/L (3.5-5.1); Sodium Level 141 mmol/L (136-145)
== END | disposition home or self-care (01) ==
LOC: BIMLAB 10:20
PROVIDERS: PCP Internal Medicine; Referring Provider Internal Medicine; Visit Provider Internal Medicine
DX: M81.0 Age-related osteoporosis without current pathological fracture (principal)
CPT/HCPCS: 36415; 80048; 82306

== ENCOUNTER → 2024-11-08 | Outpatient (CLI) | payer MEDICARE, OTHER, SELFPAY ==
--- NOTE | 2024-11-08 13:06 | RAD_ITS ---
PROCEDURE: KNEE 4 OR MORE VIEWS 11/08/2024 REASON FOR EXAM: PAIN No known injury. TECHNIQUE: 4 view(s) of the right knee COMPARISON: None FINDINGS: Bones: Unremarkable. Joints: Moderate degree of joint space narrowing of the medial compartment of the knee joint. Mild degree of osteoarthritis of the patellofemoral joint. Effusion: Small joint effusion. Soft tissues: Soft tissues are unremarkable. 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 Small joint effusion. Reading Location: [id number]
== END | disposition home or self-care (01) ==
LOC: MTRAD 13:05
PROVIDERS: PCP Internal Medicine; Referring Provider Physician Assistant; Visit Provider Physician Assistant
DX: M17.9 Osteoarthritis of knee, unspecified (principal)
CPT/HCPCS: 73564

== ENCOUNTER → 2024-11-23 | Outpatient (CLI) | payer MEDICARE, OTHER, SELFPAY ==
[2024-11-23 12:54] LABS: Absolute Neutrophil Count 3.4 X10^3/uL (2.0-7.7); Basophil# 0.01 X10^3/uL; Basophil% 0.2 % (0-1); Eosinophil# 0.01 X10^3/uL; Eosinophils% 0.2 % (0-5); Hematocrit 46.2 % (37-47); Hemoglobin 15.3 g/dL (12.0-15.0); Mean Corp Hgb Conc 33.1 g/dL (32-36); Mean Corpuscular Hgb 31.4 pg (27.0-32.0); Mean Corpuscular Volume 94.7 fL (81-99); Monocyte# 0.66 X10^3/uL; Monocyte% 11.6 % (0-10); NRBC Flagged by Analyzer 0 % (0-5); Neutrophil # 3.42 X10^3/uL (2.7-7.7); Neutrophil % 59.8 % (47-70); Platelet Count 175 K/mm3 (150-450); RBC Distribution Width CV 12.8 % (11.6-14.6); RBC Distribution Width SD 44.5 fl (35.1-43.9); Red Blood Count 4.88 M/mm3 (4.2-5.4); White Blood Count 5.7 K/mm3 (4.4-11.0)
[2024-11-23 13:53] LABS: ALB/GLOB Ratio 1.2 RATIO (0.9-2.4); AST(SGOT) 22 U/L (<=31); Alanine Aminotransfer ALT/SGPT 14 U/L (<=34); Alkaline Phosphatase 105 U/L (35-104); Anion Gap 11 (5-15); BUN 14 mg/dL (4-19); BUN/Creat Ratio 18.5 RATIO (10-20); Calcium,Total 10.2 mg/dL (7.6-11.0); Carbon Dioxide 26.4 mmol/L (21.0-32.0); Chloride 102 mmol/L (98-108); Cholesterol 248 mg/dL (<=200); Creatinine, Serum 0.75 mg/dL (0.70-1.20); EST Glomerular Filtration Rate 82 (>60); Globulin 3.3 g/dL (2.2-4.2); Glucose 86 mg/dL (70-99); High Density Lipoprotein 80 mg/dL; Low Density Lipoprotein Calc. 157 mg/dL; Potassium 4.2 mmol/L (3.3-5.1); Protein, Total 7.2 g/dL (5.9-8.4); Sodium Level 139 mmol/L (133-145); Total Bilirubin 0.52 mg/dL (0.00-1.30); Triglycerides 57 mg/dL; Very Low Density Lipoprotein 11 mg/dL (5-40); cholesterol:hdl ratio screen 3.11
== END | disposition home or self-care (01) ==
LOC: BIMLAB 10:54
PROVIDERS: PCP Internal Medicine; Referring Provider Internal Medicine; Visit Provider Internal Medicine
DX: E78.5 Hyperlipidemia, unspecified (principal)
CPT/HCPCS: 36415; 80053; 80061; 85025

== ENCOUNTER → 2024-11-29 | Outpatient (CLI) | payer MEDICARE, OTHER, SELFPAY ==
--- NOTE | 2024-11-29 08:45 | BI_ITS ---
EXAM: SCRN MAMM (CAD)W/RADHA BILAT DATE: 11/29/2024 CLINICAL HISTORY: F, Age 79 y/o , BREAST CANCER SCREENING Aunt with breast cancer. Remote right stereotactic breast biopsy. BREAST CANCER RISK ASSESSMENT: Not assessed. TECHNIQUE: Bilateral screening digital breast tomosynthesis with 2D and 3D images. Computer aided detection. COMPARISON: Prior exam(s) dated November 11, 2023.. FINDINGS: TISSUE DENSITY: The breast tissue is extremely dense which lowers the sensitivity of mammography. Bilateral Breast Mammographic Findings: No significant masses, calcifications or other abnormalities are identified. A tissue clip marker is once again seen in the central upper aspect of the right breast. No suspicious masses, areas of developing architectural distortion, or suspicious calcifications. There has been no significant interval change. BI/SCRN MAMM (CAD)W/RADHA BILAT IMPRESSION: OVERALL FINAL ASSESSMENT: BIRADS 2 BENIGN FINDING RECOMMENDATION: Routine annual follow-up in 1 Year A letter with findings and recommendations will be mailed to the patient. Reading Location: [place] [address]
== END | disposition home or self-care (01) ==
LOC: OPBI 08:35
PROVIDERS: PCP Internal Medicine; Referring Provider Internal Medicine; Visit Provider Internal Medicine
DX: Z12.31 Encounter for screening mammogram for malignant neoplasm of breast (principal)
CPT/HCPCS: 77063; 77067

== ENCOUNTER → 2024-12-08 | Outpatient (CLI) | payer MEDICARE, OTHER, SELFPAY ==
--- NOTE | 2024-12-08 13:03 | MRI_ITS ---
EXAM: MRI right knee without contrast CLINICAL HISTORY: Sharp knee pain. Remote injury. COMPARISON: None. TECHNIQUE: Multiplanar multisequence MRI of the right knee without contrast. FINDINGS: Anterior and posterior cruciate ligaments are intact. Nondisplaced horizontal tear of the posterior horn lateral meniscus. Degenerative complex tear of the posterior horn and body of the medial meniscus. This includes rupture of the posterior root ligament allowing for medial extrusion of the meniscal body. Medial and lateral collateral ligaments are intact. Severe medial compartment DJD with full-thickness cartilage loss with subchondral cystic change/edema. No discrete fracture is evident. No evidence of osteonecrosis or suspicious marrow lesion. The extensor mechanism is unremarkable. No significant joint effusion. Moderate/severe cartilage loss of the medial patellar facet. Lateral compartment cartilage is intact. Tariq's cyst measuring 4.7 x 1 x 1.6 cm. Edema of the popliteus muscle suggesting muscle strain. The tendon is unremarkable. MRI/Lower Ext Joint Only (Routine) IMPRESSION: 1. 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 2. Advanced cartilage loss of the medial patellar facet. 3. Small Tariq's cyst. Reading Location: [facility]
== END | disposition home or self-care (01) ==
LOC: OPMRI 12:30
PROVIDERS: PCP Internal Medicine; Referring Provider Physician Assistant; Visit Provider Physician Assistant
DX: M23.91 Unspecified internal derangement of right knee (principal); S86.911A Strain of unspecified muscle(s) and tendon(s) at lower leg level, right leg, initial encounter
CPT/HCPCS: 73721

== ENCOUNTER → 2025-06-14 | Outpatient (CLI) | payer MEDICARE, OTHER, SELFPAY ==
[2025-06-14 11:27] LABS: Hematocrit 47.6 % (37-47); Hemoglobin 15.4 g/dL (12.0-15.0); Immature Granulocytes Count 0.020 X10^3/uL (0.0-0.0); Mean Corp Hgb Conc 32.4 g/dL (32-36); Mean Corpuscular Volume 95.6 fL (81-99); Mean Platelet Vol. 10.5 fl (6.2-12.0); NRBC Flagged by Analyzer 0 % (0-5); Platelet Count 169 K/mm3 (150-450); RBC Distribution Width CV 13.2 % (11.6-14.6); RBC Distribution Width SD 46.5 fl (35.1-43.9); Red Blood Count 4.98 M/mm3 (4.2-5.4); White Blood Count 4.9 K/mm3 (4.4-11.0)
--- OUTSIDE RECORDS SUMMARY | 2025-06-14 12:03 | XMS RPT_ITS | CCD ---
Author Organization [facility] CliniSyne Care Team Providers Care Historic Sites Registrar Name Role Phone Dr. Jose Velasquez Primary Care Provider Unavaila Dr. Jose Beasley Referring Provider Unavailable Giles, Dr. Paulson Attending Provider [phone] Dr. Lorene Skaggs Primary Care Provider [phone] Dr. Lorene Skaggs Referring Provider [phone] Giles GAINES, Dr. Paulson Primary Care Provider Giles GAINES, Dr. Paulson Referring Provider [phone] Francisco Guan Attending Provider [phone] Francisco Guan Referring Provider Dr. Alfredo Arrieta DO Attending Provider Giles GAINES, Dr. Paulson Attending Provider [phone] Oleghe, Efewongbe Referring Unavailable Oleghe, Efewongbe Primary Care Unavailable Oleghe, Efewongbe Attending Unavailable Francisco Guan Attending Unavailable Oleghe, Efewongbe Primary Care Unavailable Oleghe, Efewongbe Referring Unavailable Alfredo Arrieta Attending Unavailable Oleghe, Efewongbe Primary Care Unavailable Oleghe, Efewongbe Referring Unavailable Oleghe, Efewongbe Primary Care Unavailable Oleghe, Efewongbe Attending Unavailable Oleghe, Efewongbe Referring Unavailable Oleghe, Efewongbe Primary Care Unavailable Oleghe, Efewongbe Attending Unavailable Oleghe, Efewongbe Referring Unavailable Francisco Guan Attending Unavailable Francisco Guan Referring Unavailable Oleghe, Efewongbe Primary Care Unavailable Francisco Guan Referring Unavailable Oleghe, Efewongbe Primary Care Unavailable Francisco Guan Attending Unavailable [facility]ne [facility] Referring Un[facility] Unavailable Giles Najmabe Attending Unavailable Lorene Skaggs Referring Unavailable Allergies Allergy Classification Reported Allergen(s) Allergy Type Date of Onset Reaction(s) Facility (6 sources) oxyCODONE Drug Allergy 10-14-2023 nausea [facility] (1 source) oxyCODONE Drug Allergy 11-23-2024 [facility] Repository Medications Current Medications Medication Drug Class(es) Dates Sig (Normalized) Sig (Original) calcium carbonate 648 mg oral tablet (5 sources) Start: 11-23-2024 take 1 tablet by mouth twice daily Calcium Carbonate 260 mg calcium (648 mg) tablet Active 260 mg PO TWICE A DAY November 23, 2024 10:09am Start: 11-08-2024 End: 11-23-2024 take 1 tablet by mouth once Calcium Carbonate 260 mg c alcium (648 mg) tablet Discontinued 260 mg PO ONCE November 08, 2024 12:00am November 23, 2024 10:10am cholecalciferol 0.05 mg oral capsule (3 sources) Vitamin D Start: 11-08-2024 take 1 capsule by mouth once daily Cholecalciferol (Vitamin D3) 50 mcg (2,000 unit) capsule Active 50 ug PO daily November 08, 2024 12:00am cyclobenzaprine hydrochloride 5 mg oral tablet (3 sources) Muscle Relaxant Start: 05-25-2024 take 1 tablet by mouth three times daily as needed for muscle spasms Cyclobenzaprine 5 mg tablet Active 5 mg PO THREE TIMES A DAY as needed for muscle spasm 60 May 25, 2024 12:00am naproxen sodium 220 mg oral capsule (2 sources) Nonsteroidal Anti-inflammatory Drug Start: 11-16-2024 take 1 capsule by mouth twice daily as needed Naproxen Sodium (Aleve) 220 mg capsule Active 220 mg PO TWICE A DAY as needed November 16, 2024 12:00am [place] (Nk) (1 source) Start: 10-14-2023 [place] (Nk) Active October 14, 2023 1:00am Completed/Discontinued Medications Medication Drug Class(es) Dates Sig (Normalized) Sig (Original) alendronic acid 70 mg oral tablet (11 sources) Bisphosphonate Start: 11-13-2023 End: 06-20-2024 take 1 tablet by mouth every week Alendronate (Fosamax) 70 mg tablet Discontinued 70 mg PO EVERY WEEK May 25, 2024 10:16am June 20, 2024 6:04pm Nirmatrelvir-Riton avir (Paxlovid) 300 mg (150 mg x 2)-100 mg tablets,dose pack (3 sources) Start: 06-04-2024 End: 11-08-2024 Nirmatrelvir-Riton avir (Paxlovid) 300 mg (150 mg x 2)-100 mg tablets,dose pack Discontinued 0 PO .COMPLEX June 04, 2024 12:00am November 08, 2024 12:41pm take TWO 150 mg tablets of nirmatrelvir with ONE 100 mg tablet of ritonavir twice daily for 5 days PO omeprazole 20 mg delayed release oral capsule (6 sources) Proton Pump Inhibitor Start: 12-28-2020 End: 01-01-2021 take 1 capsule by mouth once daily Omeprazole 20 mg capsule,delayed release(DR/EC) Discontinued 20 mg PO DAILY December 28, 2020 12:00am January 01, 2021 10:23am pantoprazole 20 mg delayed release oral tablet (14 sources) Proton Pump Inhibitor Start: 05-25-2024 End: 11-23-2024 take 1 tablet by mouth once daily Pantoprazole 20 mg tablet,delayed release (DR/EC) Discontinued 20 mg PO daily May 25, 2024 10:16am November 23, 2024 10:10am Start: 01-01-2021 End: 10-14-2023 take 1 tablet by mouth once daily Pantoprazole 40 mg tablet,delayed release (DR/EC) Discontinued 40 mg PO DAILY January 01, 2021 12:00am October 14, 2023 11:01am traMADol hydrochloride 50 mg oral tablet (6 sources) Opioid Agonist Start: 06-20-2019 End: 06-24-2019 take 1 tablet by mouth every four hours as needed for pain Tramadol 50 MG tablet Discontinued 50 mg PO EVERY 4 HOURS NEEDED as needed for Pain Score 1-10/10 5 2 June 20, 2019 1:00am June 21, 2019 1:00am June 24, 2019 1:09am Problems Active Problems Problem Classification Problem Date Documented Da te Episodic/Chronic Disorders of lipid metabolism (12 sources) Hyperlipidemia; Translations: [Hyperlipidemia, unspecified] Onset: 5 10-14-2023 Chronic Esophageal disorders (11 sources) Gastroesophageal reflux disease; Translations: [Gastro-esophageal reflux disease without esophagitis] 10-14-2023 Chronic Joint disorders and dislocations; trauma-related (9 sources) Derangement of right knee; Translations: [Unspecified internal derangement of right knee] Onset: 5 11-08-2024 Chronic Nutritional deficiencies (7 sources) Vitamin D deficiency; Translations: [Vitamin D deficiency, unspecified] 11-13-2023 Chronic Osteoarthritis (8 sources) Osteoarthritis of right knee joint; Translations: [Unilateral primary osteoarthritis, right knee] Onset: 5 11-23-2024 Chronic Osteoporosis (10 sources) Osteoporosis; Translations: [Age-related osteoporosis without current pathological fracture] Onset: 4 11-13-2023 Chronic Other gastrointestinal disorders (6 sources) Stool DNA-based colorectal cancer screening positive; Translations: [Other fecal abnormalities] 12-28-2020 Episodic Other nervous system disorders (6 sources) Carpal tunnel syndrome of left wrist; Translations: [Carpal tunnel syndrome, left upper limb] 07-14-2019 Chronic Other nervous system disorders (6 sources) Carpal tunnel syndrome; Translations: [Carpal tunnel syndrome, bilateral upper limbs] 05-26-2019 Chronic Other screening for suspected conditions (not mental disorders or infectious disease) (1 source) Encounter for screening mammogram for malignant neoplasm of breast; Translations: [Encounter for screening mammogram for malignant neoplasm of breast] Onset: 5 Episodic Residual codes; unclassified (1 source) Pain, unspecified; Translations: [Pain, unspecified] Onset: 5 Episodic Spondylosis; intervertebral disc disorders; other back problems (5 sources) Chronic back pain ; Translations: [Dorsalgia, unspecified] 05-25-2024 Episodic Sprains and strains (7 sources) Strain of knee; Translations: [Strain of unspecified muscle(s) and tendon(s) at lower leg level, right leg, initial encounter] Onset: 11-08-2024 Episodic Unclassified (3 sources) M23.91 - Unspecified internal derangement of right knee,S86.911A - Strain of unspecified muscle(s) and tendon(s) at lower leg level, right leg, initial encounter Past or Other Problems Problem Classification Problem Date Documented Da te Episodic/Chronic Immunizations and screening for infectious disease (4 sources) Needs influenza immunization; Translations: [Encounter for immunization] Onset: 05-25-2024 05-25-2024 Episodic Unclassified (6 sources) s/p finger surgery 02-27-2022 Unclassified (6 sources) s/p left carpal tunnel release 02-27-2022 Unclassified (6 sources) s/p right carpal tunnel release 02-27-2022 Results Test Name Value Interpretation Reference Range Facility Lower Ext Joint Only (Routin e)on 12-08-2024 Lower Ext Joint Only (Routine) [facility] [address] [place] [id number] Lower Ext Joint Only (Routine) MR#: [id number] Acct: [id number] Name: KAREEM VÁSQUEZ Rep #: [id number] : 1945 F 79 From: Max Carrington DO PCP: Dr. Lorene Skaggs MD Status: REG CLI Study: Lower Ext Joint Only (Routine) Date of Exam: 0 12/08/24 Exam# [id number] Ordering Dr: Francisco Burks EXAM: MRI right knee without contrast CLINICAL HISTORY: Sharp knee pain. Remote injury. COMPARISON: None. TECHNIQUE: Multiplanar multisequence MRI of the right knee without contrast. FINDINGS: Anterior and posterior cruciate ligaments are intact. Nondisplaced horizontal tear of the posterior horn lateral meniscus. Degenerative complex tear of the posterior horn and body of the medial meniscus. This includes rupture of the posterior root ligament allowing for medial extrusion of the meniscal body. Medial and lateral collateral ligaments are intact. Severe medial compartment DJD with full-thickness cartilage loss with subchondral cystic change/edema. No discrete fracture is evident. No evidence of osteonecrosis or suspicious marrow lesion. The extensor mechanism is unremarkable. No significant joint effusion. Moderate/severe cartilage loss of the medial patellar facet. Lateral compartment cartilage is intact. Tariq's cyst measuring 4.7 x 1 x 1.6 cm. Edema of the popliteus muscle suggesting muscle strain. The tendon is unremarkable. MRI/Lower Ext Joint Only (Routine) IMPRESSION: 1. 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 2. Advanced cartilage loss of the medial patellar facet. 3. Small Tariq's cyst. Reading Location: [facility] CC: Dr. Lorene Skaggs MD; ADALID Hutchinson Cardiovascular Disease Specialist: Signed Normal [facility] Breast imaging reportOrdered By: Alfa Estrada on 11-29-2024 Study report [facility] [address] [place] [address] SCRN MAMM (CAD)W/RADHA BILAT MR#: [id number] Acct: [id number] Name: KAREEM VÁSQUEZ Rep #: [id number] : 1945 F 79 From: Gerald Estrada MD PCP: Dr. Lorene Skaggs MD Status: R EG CLI Study:SCRN MAMM (CAD)W/RADHA BILAT Date of Exa m: 11/29/24 Exam# [id number] Ordering Dr: Corby Skaggs MD EXAM: SCRN MAMM (CAD)W/RADHA BILAT DATE: 11/29/2024 CLINICAL HISTORY: F, Age 79 y/o , BREAST CANCER SCREENING Aunt with breast cancer. Remote right stereotactic breast biopsy. BREAST CANCER RISK ASSESSMENT: Not assessed. TECHNIQUE: Bilateral screening digital breast tomosynthesis with 2D and 3D images. Computeraided detection. COMPARISON: Prior exam(s) dated November 11, 2023.. FINDINGS: TISSUE DENSITY: The breast tissue is extremely dense which lowers the sensitivity of mammography. Bilateral Breast Mammographic Findings: No significant masses, calcifications or other abnormalities are identified. A tissue clip marker is once again seen in the central upper aspect of the right breast. No suspicious masses, areas of developing architectural distortion, or suspicious calcifications. There has been no significant interval change. BI/SCRN MAMM (CAD)W/RADHA BILAT IMPRESSION: OVERALL FINAL ASSESSMENT: BIRADS 2 BENIGN FINDING RECOMMENDATION: Routine annual follow-up in 1 Year A letter with findings and recommendations will be mailed to the patient. Reading Location: [facility] CC: Dr. Lorene Skaggs MD ~ Cardiovascular Disease Specialist: Signed [facility] SCRN MAMM (CAD)W/RADHA BILATo n 11-29-2024 SCRN MAMM (CAD)W/RADHA BILAT [facility] [address] [place] [address] SCRN MAMM (CAD)W/RADHA BILAT MR#: [id number] Acct: [id number] Name: KAREEM VÁSQUEZ Rep #: [id number] : 1945 F 79 From: Alfa ponce MD PCP: Dr. Lorene Skaggs MD Status: [facility] Study: SCRN MAMM (CAD)W/RADHA BILAT Date of Exam: 11/09 10/04 Exam# [id number] Ordering Dr: Lorene Skaggs MD EXAM: SCRN MAMM (CAD)W/RADHA BILAT DATE: 11/29/2024 CLINICAL HISTORY: F, Age 79 y/o , BREAST CANCER SCREENING Aunt with breast cancer. Remote right stereotactic breast biopsy. BREAST CANCER RISK ASSESSMENT: Not assessed. TECHNIQUE: Bilateral screening digital breast tomosynthesis with 2D and 3D images. Computer aided detection. COMPARISON: Prior exam(s) dated November 11, 2023.. FINDINGS: TISSUE DENSITY: The breast tissue is extremely dense which lowers the sensitivity of mammography. Bilateral Breast Mammographic Findings: No significant masses, calcifications or other abnormalities are identified. A tissue clip marker is once again seen in the central upper aspect of the right breast. No suspicious masses, areas of developing architectural distortion, or suspicious calcifications. There has been no significant interval change. BI/SCRN MAMM (CAD)W/RADHA BILAT IMPRESSION: OVERALL FINAL ASSESSMENT: BIRADS 2 BENIGN FINDING RECOMMENDATION: Routine annual follow-up in 1 Year A letter with findings and recommendations will be mailed to the patient. Reading Location: [place] [address] CC: Dr. Lorene Skaggs MD Cardiovascular Disease Specialist: Signed Normal [facility] Absolute neutrophil countOrd ered By: Lorene Skaggs on 11-23-2024 Neutrophils (Bld) [#/Vol] 3.4 10*3/uL 2.0-7.7 [facility] Anion gap in Serum or Plasma Ordered By: Lorene Skaggs on 11-23-2024 Anion gap [Moles/Vol] 11 mmol/L 5- [facility] BUN/creatinine ratioOrdered By: Lorene Skaggs on 11-23-2024 Urea nitrogen/Creatinine [Mass ratio] 18.5 mg/mg 10- [facility] Basophil percentageOrdered B y: Lorene Skaggs on 11-23-2024 Basophils/100 WBC (Bld) 0.2 % 0-1 [facility] Bilirubin, totalOrdered By: Lorene Skaggs on 11-23-2024 Bilirubin [Mass/Vol] 0.52 mg/dL 0.00-1.30 [facility] CBC W/Diff, Automatedon 11-08 Absolute Lymph 1.60 X10 3/uL Normal 0.83-4.51 [facility] Comment on above: Performed By: #### L 100.0100, L500.4100, L500.4050 #### [facility] [address] [place], [address] Absolute Neut 3.4 X10 3/uL Normal 2.0-7.7 [facility] Comment on above: Performed By: #### L 100.0100, L500.4100, L500.4050 #### [facility] [address] [place], [address] Basophils/100 WBC (Bld) 0.2 % Normal 0-1 [facility] Comment on above: Performed By: #### L 100.0100, L500.4100, L500.4050 #### [facility] [address] [place], [address] Eosinophils/100 WBC (Bld) 0.2 % Normal 0-5 [facility] Comment on above: Performed By: #### L 100.0100, L500.4100, L500.4050 #### [facility] [address] [place], [address] Erythrocyte distribution width (RBC) [Ratio] 12.8 % Normal 11.6-14.6 [facility] Comment on above: Performed By: #### L 100.0100, L500.4100, L500.4050 #### [facility] [address] [place], [address] Hematocrit (Bld) [Volume fraction] 46.2 % Normal 37-47 [facility] Comment on above: Performed By: #### L 100.0100, L500.4100, L500.4050 #### [facility] [address] [place], [address] Hemoglobin (Bld) [Mass/Vol] 15.3 g/dL High 12.0-15.0 [facility] Comment on above: Performed By: #### L 100.0100, L500.4100, L500.4050 #### [facility] [address] [place], [address] IG% 0.200 Normal 0.0-0.9 [facility] Comment on above: Result Comment: IG% - Immature Granulocytes (promyelocytes, myelocytes and metamyelocytes) > 1% indicates that a LEFT SHIFT is Present. Performed By: #### L 100.0100, L500.4100, L500.4050 #### [facility] [address] [place], [address] Lymphocytes/100 WBC (Bld) 28.0 % Normal 19-41 [facility] Comment on above: Performed By: #### L 100.0100, L500.4100, L500.4050 #### [facility] [address] [place], [address] MCH (RBC) [Entitic mass] 31.4 pg Normal 27.0-32.0 [facility] Comment on above: Performed By: #### L 100.0100, L500.4100, L500.4050 #### [facility] [address] [place], [address] MCHC (RBC) [Mass/Vol] 33.1 g/dL Normal 32-36 [facility] Comment on above: Performed By: #### L 100.0100, L500.4100, L500.4050 #### [facility] [address] [place], [address] MCV (RBC) [Entitic vol] 94.7 fL Normal 81-99 [facility] Comment on above: Performed By: #### L 100.0100, L500.4100, L500.4050 #### [facility] [address] [place], [address] Monocytes/100 WBC (Bld) 11.6 % High 0-10 [facility] Comment on above: Performed By: #### L 100.0100, L500.4100, L500.4050 #### [facility] [address] [place], [address] Neutrophils/100 WBC (Bld) 59.8 % Normal 47-70 [facility] Comment on above: Performed By: #### L 100.0100, L500.4100, L500.4050 #### [facility] [address] [place], [address] Nucleated RBC (Bld) [#/Vol] 0 10*3/uL Normal 0-5 [facility] Comment on above: Performed By: #### L 100.0100, L500.4100, L500.4050 #### [facility] [address] [place], [address] Platelet mean volume (Bld) [Entitic vol] 11.0 fL Normal 6.2-12.0 [facility] Comment on above: Performed By: #### L 100.0100, L500.4100, L500.4050 #### [facility] [address] [place], [address] Platelets (Bld) [#/Vol] 175 10*3/uL Normal 150-450 [facility] Comment on above: Performed By: #### L 100.0100, L500.4100, L500.4050 #### [facility] [address] [place], [address] RBC (Bld) [#/Vol] 4.88 10*6/uL Normal 4.2-5.4 [facility] Comment on above: Performed By: #### L 100.0100, L500.4100, L500.4050 #### [facility] [address] [place], [address] RDW SD 44.5 fl High 35.1-43.9 [facility] Comment on above: Performed By: #### L 100.0100, L500.4100, L500.4050 #### [facility] [address] [place], [address] WBC (Bld) [#/Vol] 5.7 10*3/uL Normal 4.4-11.0 [facility] Comment on above: Performed By: #### L 100.0100, L500.4100, L500.4050 #### [facility] [address] [place], [address] Calculated very low density lipoprotein (VLDL) cholesterol measurementOrdered By: Lorene Skaggs on 11-23-2024 VLDL Cholesterol 11 mg/dL 5-40 [facility] Carbon dioxide, total [Moles /volume] in Central venous bloodOrdered By: Lorene Skaggs on 11-23-2024 CO2 [Moles/Vol] 26.4 mmol/L 21.0-32.0 [facility] Chloride assayOrdered By: Brooke Skaggs on 11-23-2024 Chloride [Moles/Vol] 102 mmol/L 98-108 [facility] Comprehensive Metabolic Prof ilon 11-23-2024 Albumin [Mass/Vol] 4.0 g/dL Normal 3.4-4.8 [facility] Comment on above: Performed By: #### L 100.0100, L500.4100, L500.4050 #### [facility] [address] [place], [address] Albumin/Globulin [Mass ratio] 1.2 {ratio} Normal 0.9-2.4 [facility] Comment on above: Performed By: #### L 100.0100, L500.4100, L500.4050 #### [facility] [address] [place], [address] ALK PHOS 105 U/L High 35-104 [facility] Comment on above: Performed By: #### L 100.0100, L500.4100, L500.4050 #### [facility] [address] [place], [address] ALT [Catalytic activity/Vol] 14 U/L Normal <=34 [facility] Comment on above: Performed By: #### L 100.0100, L500.4100, L500.4050 #### [facility] [address] [place], [address] AST [Catalytic activity/Vol] 22 U/L Normal <=31 [facility] Comment on above: Performed By: #### L 100.0100, L500.4100, L500.4050 #### [facility] [address] [place], [address] Bilirubin [Mass/Vol] 0.52 mg/dL Normal 0.00-1.30 [facility] Comment on above: Performed By: #### L 100.0100, L500.4100, L500.4050 #### [facility] [address] [place], [address] BUN/CRE 18.5 RATIO Normal 10-20 [facility] Comment on above: Performed By: #### L 100.0100, L500.4100, L500.4050 #### [facility] [address] [place], [address] Calcium [Mass/Vol] 10.2 mg/dL Normal 7.6-11.0 [facility] Comment on above: Performed By: #### L 100.0100, L500.4100, L500.4050 #### [facility] [address] [place], [address] Chloride [Moles/Vol] 102 mmol/L Normal 98-108 [facility] Comment on above: Performed By: #### L 100.0100, L500.4100, L500.4050 #### [facility] [address] [place], [address] CO2 [Moles/Vol] 26.4 mmol/L Normal 21.0-32.0 [facility] Comment on above: Performed By: #### L 100.0100, L500.4100, L500.4050 #### [facility] [address] [place], [address] Creatinine [Mass/Vol] 0.75 mg/dL Normal 0.70-1.20 [facility] Comment on above: Performed By: #### L 100.0100, L500.4100, L500.4050 #### [facility] [address] [place], [address] GAP 11 Normal 5-15 [facility] Comment on above: Performed By: #### L 100.0100, L500.4100, L500.4050 #### [facility] [address] [place], [address] GFR/1.73 sq M.predicted among non-blacks MDRD (S/P/Bld) [Vol rate/Area] 82 mL/min/{1.73_m2} Normal >60 [facility] Comment on above: Result Comment: mL/m in/1.73m2 CKD-EPI Creatinine Equation (2020) Performed By: #### L 100.0100, L500.4100, L500.4050 #### [facility] [address] [place], [address] Globulin (S) [Mass/Vol] 3.3 g/dL Normal 2.2-4.2 [facility] Comment on above: Performed By: #### L 100.0100, L500.4100, L500.4050 #### [facility] [address] [place], [address] Glucose [Mass/Vol] 86 mg/dL Normal 70-99 [facility] Comment on above: Performed By: #### L 100.0100, L500.4100, L500.4050 #### [facility] [address] [place], [address] Potassium [Moles/Vol] 4.2 mmol/L Normal 3.3-5.1 [facility] Comment on above: Performed By: #### L 100.0100, L500.4100, L500.4050 #### [facility] [address] [place], [address] Sodium [Moles/Vol] 139 mmol/L Normal 133-145 [facility] Comment on above: Performed By: #### L 100.0100, L500.4100, L500.4050 #### [facility] [address] [place], [address] T PROT 7.2 g/dL Normal 5.9-8.4 [facility] Comment on above: Performed By: #### L 100.0100, L500.4100, L500.4050 #### [facility] [address] [place], [address] Urea nitrogen [Mass/Vol] 14 mg/dL Normal 4-19 [facility] Comment on above: Performed By: #### L 100.0100, L500.4100, L500.4050 #### [facility] [address] [place], [address] Eosinophil percentageOrdered By: Lorene Skaggs on 11-23-2024 Eosinophils/100 WBC (Bld) 0.2 % 0-5 [facility] Erythrocyte distribution wid th (RBC) [Ratio]Ordered By: Lorene Skaggs on 11-23-2024 Erythrocyte distribution width (RBC) [Entitic vol] 44.5 fL High 35.1-43.9 [facility] Erythrocyte distribution wid th ratioOrdered By: Lorene Skaggs on 11-23-2024 Erythrocyte distribution width (RBC) [Ratio] 12.8 % 11.6-14.6 [facility] GFR/1.73 sq M.predicted lizzy g non-blacks MDRD (S/P/Bld) [Vol rate/Area]Ordered By: Lorene Skaggs on 11-23-2024 Estimated GFR (MDRD) Non-Af Amer 82 >60 [facility] Comment on above: mL/min/1.73m2 CKD-EP I Creatinine Equation (2020) Hematocrit Auto (Bld) [Volum e fraction]Ordered By: Lorene Skaggs on 11-23-2024 Hematocrit (Bld) [Volume fraction] 46.2 % 37-47 [facility] Hemoglobin measurementOrdere d By: Lorene Skaggs on 11-23-2024 Hemoglobin (Bld) [Mass/Vol] 15.3 g/dL High 12.0-15.0 [facility] Immature granulocytes/100 WB C Auto (Bld)Ordered By: Lorene Skaggs on 11-23-2024 Immature granulocytes/100 WBC (Bld) 0.200 % 0.0-0.9 [facility] Comment on above: IG% - Immature Granu locytes (promyelocytes, myelocytes and metamyelocytes) > 1% indicates that a LEFT SHIFT is Present. Internal Medicine Office Vis iton 11-23-2024 Internal Medicine Office Visit [facility] [address] [place] [address] [place] [address] OFFICE VISIT Date of Service: 11/23/24 MR#: [id number] Acct: [id number] Name: KAREEM VÁSQUEZ Rep #: [id number] : 1945 Provider: Dr. Lorene crawford MD Age/Sex: 79/F Location: [facility] Status: Signed Intake Vital Signs 05/25/24 10:03 11/16/24 09:02 11/23/24 10:11 Height 5 ft 1 in 5 ft 1 in 5 ft 1 in Weight: 128 lb BMI 24.1 BP 118/80 Blood Pressure Location Lt brachial Position Sitting Respiration 16 Pulse 80 Pulse Source Monitor Temp 97.7 F L Temp Source Temporal Pulse Oximetry (%) 95 Oxygen Delivery Method room air Intake Visit Reasons: 6 M FU Chief Complaint: 6 M FU Is patient in pain?: Yes (RIGHT KNEE) Pain scale (1-10): 5 Allergies oxycodone (From Percocet) Allergy (Mild, Verified 11/23/24 10:08) nausea Medications ???Medication ???Instructions ???Recorded ???Confirmed ???Type cyclobenzaprine 5 mg tablet 5 mg PO TID PRN muscle spasm #60 1 11/23/24 Rx tabs alendronate 70 mg tablet (Fosamax) 70 mg PO QWEEK #14 tabs 06/20/24 11/23/24 Rx cholecalciferol (vitamin D3) 50 50 mcg PO QDAY 11/08/24 11/23/24 H istory mcg (2,000 unit) capsule naproxen sodium 220 mg capsule 220 mg PO BID PRN 11/16/24 5 History (Aleve) calcium carbonate 260 mg PO BID 11/23/24 11/23/24 Hi story pantoprazole 20 mg tablet,delayed 20 mg PO QDAY PRN 11/23/24 Histo ry release Have you fallen in the past year?: No Nurse's Note: REQUESTING ORDER BE PLACED FOR MAMMOGRAM [facility] Medical History Strain of right knee Internal derangement of right knee Flu vaccine need Chronic back pain Vitamin D insufficiency Osteoporosis Health care maintenance Hyperlipidemia Cataract Breast lump Alcohol use Arthritis Gastric reflux Non-smoker Carpal tunnel syndrome on both sides Surgical History H/O breast biopsy s/p right carpal tunnel release s/p left carpal tunnel release s/p finger surgery S/P cataract extraction S/P bunionectomy Family History Mother Heart disease CVA (cerebral vascular accident) Father Emphysema of lung Dementia Grandmother Cancer lymphoma CVA (cerebral vascular accident) Social History household members: significant other housing: house current occupational status: retired Smoking Status: Never smoker alcohol intake: current alcohol intake frequency: a few times a week Alcohol type: wine substance use type: does not use what type of physical activity do you participate in: walking frequency: 3-4 times per week seatbelt use: always do you feel safe at home: Yes HPI HPI Chief Complaint: 6 M FU Details: KAREEM VÁSQUEZ, is a 79 F who presents to the office today for follow-up. No acute concerns at this time. Following up with Ortho and had an injection to her right knee which she found helpful. Has also been taking NSAIDs as needed. Stays active. No falls. Had reported back pain at her last visit which was thought to be muscular. Supportive measures and Flexeril as needed prescribed, she states that at this time pain has resolved. No numbness or tingling down her extremities. History of osteoporosis currently on Fosamax. Has been on Fosamax for about a year and tolerating medication well. No recent fracture. Other chronic medical conditions are stable. ROS Const Constitutional: No body ache, chills, excessive sweating, fatigue, fever(s), frequent falls, headache(s), snoring, weakness, sleep problems or change in appetite Eyes Eyes: No blurry vision, change in vision, floaters, visual disturbances or Light sensitivity ENT ENT: No abnormal hearing, ear or mastoid pain, tinnitus, balance problems, nosebleed/epistaxis, nasal congestion, nasal discharge, headache(s), neck pain or sore throat Resp Respiratory: No cough, excessive phlegm production, pain on inspiration, shortness of breath, snoring or wheezing Cardio Cardiology: No chest pain at rest, chest pain with exertion, excessive sweating, shortness of breath, dyspnea on exertion, lightheadedness, orthopnea or palpitations Gastro GI: No abdominal pain, change in bowel habits, constipation, cramping, diarrhea or nausea/dyspepsia Genitourinary-Female: No burning urination, painful urination, urinary incontinence, urinary frequency, suprapubic fullness or side pain Musc Musculoskeletal: Positive for joint pain (RIGHT KNEE PAIN; LUCA ARRIETA, HAD INJECTION; MRI IN DECEMBER); No abnormal gait, back pain, limited range of motion, muscle weakness, neck pain or numbness Skin Skin: No dry skin, redness, excessive h (more content not included)... Normal [facility] LDL calc ser/plasOrdered By: Lorene Skaggs on 11-23-2024 LDL Cholesterol, Calculated 157 mg/dL [facility] Comment on above: Cgkyffvlyh=108-010 m g/dL & Higher Mzoz=266 mg/dL or greater Laboratory - Chemistry and C hemistry - challengeOrdered By: Lorene Skaggs on 11-23-2024 AST [Catalytic activity/Vol] 22 U/L <32 [facility] Lipid Profileon 11-23-2024 CHOL:HDL 3.11 Normal [facility] Comment on above: Performed By: #### L 100.0100, L500.4100, L500.4050 #### [facility] Laboratory [facility] [place], [address] Cholesterol [Mass/Vol] 248 mg/dL High <=200 [facility] Comment on above: Result Comment: Chol esterol level, Desirable <200 mg/dL Borderline high cholesterol 200-239 mg/dL High cholesterol >=240 mg/dL Recommendations of the NCEP Adult Treatment Panel for the following risk-cutoff thresholds for the [place] population. Performed By: #### L 100.0100, L500.4100, L500.4050 #### [facility] [address] [place], [address] Cholesterol in HDL [Mass/Vol] 80 mg/dL Normal [facility] Comment on above: Result Comment: Gayatri onal Cholesterol Education Program (NCEP) guidelines: <40 mg/dL: Low HDL-cholesterol (major risk factor for CHD) >= 60 mg/dL: High HDL-cholesterol (negative risk factor for CHD) HDL-cholesterol is affected by a number of factors, e.g. smoking, exercise, hormones, sex and age. Performed By: #### L 100.0100, L500.4100, L500.4050 #### [facility] [address] [place], [address] Cholesterol in LDL [Mass/Vol] 157 mg/dL Normal [facility] Comment on above: Result Comment: Bord ippfap=802-427 mg/dL Higher Tvhh=939 mg/dL or greater Performed By: #### L 100.0100, L500.4100, L500.4050 #### [facility] [address] [place], [address] Cholesterol in VLDL [Mass/Vol] 11 mg/dL Normal 5-40 [facility] Comment on above: Performed By: #### L 100.0100, L500.4100, L500.4050 #### [facility] [address] [place], [address] Triglyceride [Mass/Vol] 57 mg/dL Normal [facility] Comment on above: Result Comment: The drugs N-Acetylcysteine and Metamizole may falsely depress this assay. Normal range: <150 mg/dL Borderline High: 150-199 mg/dL High: 200-499 mg/dL Very High: >500 mg/dL Performed By: #### L 100.0100, L500.4100, L500.4050 #### [facility] [address] [place], [address] Lymphocytes Auto (Unsp spec) [#/Vol]Ordered By: Lorene Skaggs on 11-23-2024 Lymphocytes (Bld) [#/Vol] 1.60 10*3/uL 0.83-4.51 [facility] Lymphocytes/100 WBC Auto (Un sp spec)Ordered By: Lorene Skaggs on 11-23-2024 Lymphocytes/100 WBC (Bld) 28.0 % 19-41 [facility] MCV (mean corpuscular volume ) determinationOrdered By: Lorene Skaggs on 11-23-2024 MCV (RBC) [Entitic vol] 94.7 fL 81-99 [facility] Mean corpuscular hemoglobin (MCH) determinationOrdered By: judkirtlandruthann Skaggs on 11-23-2024 MCH (RBC) [Entitic mass] 31.4 pg 27.0-32.0 [facility] Mean corpuscular hemoglobin concentration (MCHC) determinationOrdered By: judkirtlandruthann Skaggs on 11-23-2024 MCHC (RBC) [Mass/Vol] 33.1 g/dL 32-36 [facility] Mean platelet volume determi nationOrdered By: Lorene Skaggs on 11-23-2024 Platelet mean volume (Bld) [Entitic vol] 11.0 fL 6.2-12.0 [facility] Monocyte percentageOrdered B y: Lorene Skaggs on 11-23-2024 Monocytes/100 WBC (Bld) 11.6 % High 0-10 [facility] Neutrophil percentageOrdered By: Lorene Skaggs on 11-23-2024 Neutrophils/100 WBC (Bld) 59.8 % 47-70 [facility] Nucleated red blood cell per centageOrdered By: Lorene Skaggs on 11-23-2024 Nucleated RBC/100 WBC (Bld) [Ratio] 0 % 0-5 [facility] Platelet countOrdered By: Brooke Skaggs on 11-23-2024 Platelets (Bld) [#/Vol] 175 10*3/uL 150-450 [facility] Potassium (Unsp spec) [Mass/ Vol]Ordered By: Lorene Skaggs on 11-23-2024 Potassium [Moles/Vol] 4.2 mmol/L 3.3-5.1 [facility] RBC Auto (Bld) [#/Vol]Ordere d By: Lorene Skaggs on 11-23-2024 RBC (Bld) [#/Vol] 4.88 10*6/uL 4.2-5.4 [facility] Screening total cholesterol/ high density lipoprotein (HDL) cholesterol ratioOrdered By: Lorene Skaggs on 11-23-2024 Cholesterol.total/Choles terol in HDL [Mass ratio] 3.11 {ratio} [facility] Serum creatinine measurement (mass/volume)Ordered By: Lorene Skaggs on 11-23-2024 Creatinine [Mass/Vol] 0.75 mg/dL 0.70-1.20 [facility] Serum globulin measurementOr dered By: Lorene Skaggs on 11-23-2024 Globulin (S) [Mass/Vol] 3.3 g/dL 2.2-4.2 [facility] Serum glucose measurement (m ass/volume)Ordered By: Lorene Skaggs on 11-23-2024 Glucose [Mass/Vol] 86 mg/dL 70-99 [facility] Serum or plasma alanine pleitez otransferase (ALT) measurementOrdered By: Lorene Skaggs on 11-23-2024 ALT [Catalytic activity/Vol] 14 U/L <35 [facility] Serum or plasma albumin pastora urement (mass/volume)Ordered By: Lorene Skaggs on 11-23-2024 Albumin [Mass/Vol] 4.0 g/dL 3.4-4.8 [facility] Serum or plasma albumin/glob ulin mass ratioOrdered By: Lorene Skaggs on 11-23-2024 Albumin/Globulin [Mass ratio] 1.2 {ratio} 0.9-2.4 [facility] Serum or plasma alkaline reilly sphatase measurementOrdered By: Lorene Skaggs 11-23-2024 ALP [Catalytic activity/Vol] 105 U/L High 35-104 [facility] Serum or plasma calcium pastora urement (mass/volume)Ordered By: Lorene Skaggs 11-23-2024 Calcium [Mass/Vol] 10.2 mg/dL 7.6-11.0 [facility] Serum or plasma cholesterol in HDL measurement (mass/volume)Ordered By: Lorene Skaggs 11-23-2024 Cholesterol in HDL [Mass/Vol] 80 mg/dL >40 [facility] Comment on above: National Cholesterol Education Program (NCEP) guidelines:<40 mg/dL: Low HDL-cholesterol (major risk factor for CHD)>= 60 mg/dL: High HDL-cholesterol (negative risk factor for CHD)HDL-cholesterol is affected by a number of factors, e.g. smoking, exercise, hormones, sex and age. Serum or plasma cholesterol measurement (mass/volume)Ordered By: Lorene Skaggs 11-23-2024 Cholesterol [Mass/Vol] 248 mg/dL High <201 [facility] Comment on above: Cholesterol level, D esirable <200 mg/dLBorderline high cholesterol 200-239 mg/dLHigh cholesterol >=240 mg/dLRecommendations of the NCEP Adult Treatment Panel for the following risk-cutoff thresholds for the [place] population. Serum or plasma urea nitroge n measurement (mass/volume)Ordered By: Lorene Skaggs on 11-23-2024 Urea nitrogen [Mass/Vol] 14 mg/dL 4-19 [facility] Sodium levelOrdered By: Roger Skaggs 11-23-2024 Sodium [Moles/Vol] 139 mmol/L 133-145 [facility] Total proteinOrdered By: Leo Skaggs on 11-23-2024 Protein [Mass/Vol] 7.2 g/dL 5.9-8.4 [facility] Triglycerides measurementOrd ered By: Lorene Skaggs 11-23-2024 Triglyceride [Mass/Vol] 57 mg/dL <199 [facility] Comment on above: The drugs N-Acetylcy steine and Metamizole may falsely depress this assay. Normal range: <150 mg/dLBorderline High: 150-199 mg/dLHigh: 200-499 mg/dLVery High: >500 mg/dL White blood cell (WBC) count Ordered By: Najmaruthann Giles on 11-23-2024 WBC (Bld) [#/Vol] 5.7 10*3/uL 4.4-11.0 [facility] Orthopedic Visit Reporton Orthopedic Visit Report [facility] [address] [place] [address] [address] [place] [address] OFFICE VISIT Date of Service: 11/16/24 MR#: [id number] Acct: [id number] Name: KAREEM VÁSQUEZ Rep #: [id number] : 1945 Provider: Dr. Alfredo christopher DO Age/Sex: 79/F Location: [facility] Status: Signed Intake Vital Signs 11/08/24 12:45 11/16/24 09:02 Height 5 ft 1 in 5 ft 1 in Weight: 125 lb 128 lb 8 oz BMI 23.6 24.3 BP 110/68 Position Sitting Pulse 80 Temp 98.3 F Temp Source Oral Pulse Oximetry (%) 96 Oxygen Delivery Method room air Intake Visit Reasons: RIGHT KNEE Chief Complaint: Right knee pain Accompanied by: Self Is patient in pain?: Yes Pain scale (1-10): 8 Allergies oxycodone (From Percocet) Allergy (Mild, Verified 11/16/24 09:06) nausea Medications ???Medication ???Instructions ???Recorded ???Confirmed ???Type cyclobenzaprine 5 mg tablet 5 mg PO TID PRN muscle spasm #60 1 11/16/24 Rx tabs pantoprazole 20 mg tablet,delayed 20 mg PO QDAY #90 tabs 05/25/24 0 11/16/24 Rx release alendronate 70 mg tablet (Fosamax) 70 mg PO QWEEK #14 tabs 06/20/24 11/16/24 Rx calcium carbonate 260 mg PO ONCE 11/08/24 11/16/24 H istory cholecalciferol (vitamin D3) 50 50 mcg PO QDAY 11/08/24 11/16/24 H istory mcg (2,000 unit) capsule naproxen sodium 220 mg capsule 220 mg PO BID PRN 11/16/24 5 History (Aleve) Have you fallen in the past year?: No PFSH Medical History Strain of right knee Internal derangement of right knee Flu vaccine need Chronic back pain Vitamin D insufficiency Osteoporosis Health care maintenance Hyperlipidemia Cataract Breast lump Alcohol use Arthritis Gastric reflux Non-smoker Carpal tunnel syndrome on both sides Surgical History H/O breast biopsy s/p right carpal tunnel release s/p left carpal tunnel release s/p finger surgery S/P cataract extraction S/P bunionectomy Family History Mother Heart disease CVA (cerebral vascular accident) Father Emphysema of lung Dementia Grandmother Cancer lymphoma CVA (cerebral vascular accident) Social History household members: significant other housing: house current occupational status: retired Smoking Status: Never smoker alcohol intake: current alcohol intake frequency: a few times a week Alcohol type: wine substance use type: does not use what type of physical activity do you participate in: walking frequency: 3-4 times per week seatbelt use: always do you feel safe at home: Yes HPI RIGHT KNEE Details: This documentation accurately reflects the service provided and the decisions made by me, Dr. Alfredo Arrieta, DO 11/16/24 0759. Part of today???s visit was documented by Chantel Latham MA, acting as scribe. KAREEM VÁSQUEZ is a 79 year old F with a medical history significant for but not limited to chronic back pain, vitamin D insufficiency, osteoporosis, GERD, here today for right knee pain. Patient had an injury on 04/05/2019. Patient was outside with her dog and the dog was running around and hit the back of the right knee and she heard a pop in the right knee, she had pain the next day. most recently about 2 months ago she was doing a lot of things around the house her had a hip replacement which seemed to make her symptoms worsen, this [facility] and an MRI was ordered and is scheduled for December 20, 2024. Pain is mostly medial, very sharp it feels like it almost wants to give out and it is painful when this happens. It's a lot worse when walking walking a distance. Denies any knee surgeries, or physical therapy. Has not gotten any injections in the knee. Ice helps the right knee a lot Patient has an MRI scheduled on 12/20/2024. Did have an MRI in 2019 and she does have the results from that. She followed up with an orthopedic doctor in [place] where they spend their smith but never followed through with them as she was not a fan of the doctor. The knee will occasionally feel like it will give out and it is painful when this happens. She gets sharp pain on the medial side of the knee. Denies any snapping. MRI report from 04/05/2019 says she has medial and lateral meniscal tears of the right knee, was marrow edema of the proximal tibia. Ortho Exam General General: Yes no acute distress and Yes well groomed Neurologic: Yes alert and Yes oriented x3 Psychologic: Yes reasonable and appropriate Right Knee Skin/Wound: Yes CDI, No erythema, No ecchymosis and No swelling Knee ROM: No ROM-Extension -20 (more content not included)... Normal [facility] Knee 4 or More Viewson 11-08 Knee 4 or More Views [facility] [address] [place] [address] Knee 4 or More Views MR#: [id number] Acct: [id number] Name: KAREEM VÁSQUEZ Rep #: [id number] : 1945 F 79 From: Alfa ponce MD PCP: Dr. Lorene Skaggs MD Status: REG CLI Study: Knee 4 or More Views Date of Exam: 11/08/24 Exam# [id number] Ordering Dr: Francisco Burks PA PROCEDURE: KNEE 4 OR MORE VIEWS 11/08/2024 REASON FOR EXAM: PAIN No known injury. TECHNIQUE: 4 view(s) of the right knee COMPARISON: None FINDINGS: Bones: Unremarkable. Joints: Moderate degree of joint space narrowing of the medial compartment of the knee joint. Mild degree of osteoarthritis of the patellofemoral joint. Effusion: Small joint effusion. Soft tissues: Soft tissues are unremarkable. 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 Small joint effusion. Reading Location: [id number] CC: Dr. Lorene Skaggs MD; ADALID Hutchinson Cardiovascular Disease Specialist: Signed Normal [facility] Urgent Care Visit Reporton 0 11-08-2024 Urgent Care Visit Report [facility] [address] [facility] [facility], [address] [place] [address] OFFICE VISIT Date of Service: 11/08/24 MR#: [id number] Acct: [id number] Name: KAREEM VÁSQUEZ Rep #: [id number] : 1945 Provider: ADALID Hutchinson Age/Sex: 79/F Location: [facility] Status: Signed Intake Vital Signs 05/25/24 10:03 11/08/24 12:45 Height 5 ft 1 in 5 ft 1 in Weight: 131 lb 125 lb BMI 24.7 23.6 BP 112/66 110/68 Blood Pressure Location Lt brachial Position Sitting Sitting Respiration 14 Pulse 82 80 Pulse Source Monitor Temp 97.4 F L 98.3 F Temp Source Temporal Oral Pulse Oximetry (%) 97 96 Oxygen Delivery Method room air room air Intake Visit Reasons: R KNEE PAIN Accompanied by: Self Is patient in pain?: No Allergies oxycodone (From Percocet) Allergy (Mild, Verified 11/08/24 12:41) nausea Medications ???Medication ???Instructions ???Recorded ???Confirmed ???Type cyclobenzaprine 5 mg tablet 5 mg PO TID PRN muscle spasm #60 1 05/25/24 Rx tabs pantoprazole 20 mg tablet,delayed 20 mg PO QDAY #90 tabs 05/25/24 1 Rx release alendronate 70 mg tablet (Fosamax) 70 mg PO QWEEK #14 tabs 06/20/24 11/08/24 Rx calcium carbonate 260 mg PO ONCE 11/08/24 11/08/24 H istory cholecalciferol (vitamin D3) 50 50 mcg PO QDAY 11/08/24 11/08/24 H istory mcg (2,000 unit) capsule Have you fallen in the past year?: No Nurse's Note: Patient states that her right knee has been hurting about a month. Patient states its her inner knee and she can't put weight on it. Patient states it swollen. [facility] Medical History (Updated 11/08/24 @ 13:28 by Frnacisco CORDOBA, [place]) Strain of right knee Internal derangement of right knee Flu vaccine need Chronic back pain Vitamin D insufficiency Osteoporosis Health care maintenance Hyperlipidemia Cataract Breast lump Alcohol use Arthritis Gastric reflux Non-smoker Carpal tunnel syndrome on both sides Surgical History H/O breast biopsy s/p right carpal tunnel release s/p left carpal tunnel release s/p finger surgery S/P cataract extraction S/P bunionectomy Family History Mother Heart disease CVA (cerebral vascular accident) Father Emphysema of lung Dementia Grandmother Cancer lymphoma CVA (cerebral vascular accident) Social History household members: significant other housing: house current occupational status: retired Smoking Status: Never smoker alcohol intake: current alcohol intake frequency: a few times a week Alcohol type: wine substance use type: does not use what type of physical activity do you participate in: walking frequency: 3-4 times per week seatbelt use: always do you feel safe at home: Yes HPI HPI Details: KAREEM VÁSQUEZ, is a 79 F who presents to the office today for approximately 1 month history of persistent right knee pain/swelling after a lot of repetitive lifting and climbing up and down steps while moving. No history of fall or traumatic blow to the same. Patient notes approximately 6 years ago while living in [place] she did had similar knee pain which self resolved and has been asymptomatic until above described symptoms. She notes no right hip or right ankle complaints. Right knee pain is aggravated touch particularly behind the knee as well as with fully extending the knee exacerbates her pain considerably. She has taken [id number]-[id number] products to assist. She notes no other associated symptoms and no other alleviating/aggravatin g factors. ROS Const Constitutional: No other (as above) Exam Const General: cooperative, healthy appearing and no acute distress Nutritional Appearance: average body habitus Orientation: alert and awake Resp Effort Inspection: normal respiratory effort and able to speak in complete sentences Cardio Rate: regular rate Pulses: radial pulses present Skin General: no rashes or lesions noted Neuro General: patient alert and patient awake Cognition: normal cognition Speech: speech normal Extrem General: capillary refill normal and normal exam except as noted (R knee: swelling, (+)Kayleen and popliteal tender, (-)drawer) Psych Appearance: grossly normal Mental Status: mental status grossly normal Mood: congruent mood Affect: normal affect Speech and Movement: speech and movement normal Attitude: cooperative Coding Level of Care Code Off vis,new,level 4 Diagnoses Internal derangement of right knee M23.91 Strain of right knee S86.911A Assessment and Plan Assessment and Plan (1) Internal derangement of right knee: Status: Acute ( (more content not included)... Normal [facility] L3300.0940on 05-31-2024 VIT D,25 HYDROX 64.5 ng/mL Normal 30.0-100.0 [facility] Comment on above: Order Comment: Speci men Comment: A duplicate report has been generateddue to demographicSpecimen Comment: updates. Result Comment: Brina min D deficiency has been defined by the [employer] and an Endocrine Society practice guideline as a level of serum 25-OH vitamin D less than 20 ng/mL (1,2). The Endocrine Society went on to further define vitamin D insufficiency as a level between 21 and 29 ng/mL (2). 1. IOM ([employer] of [employer]). 2010. Dietary reference intakes for calcium and D. [place]: The National Academies Press. 2. Renny PEARCE, Cherelle ALANIS, Yamilka DUMONT, et al. Evaluation, treatment, and prevention of vitamin D deficiency: an Endocrine Society clinical practice guideline. JCEM. 2010; 96(7):1911-30. Performed at: [facility] [address] [id number] Concrete Fence Builder: Jean Marie Blankenship PhD, Phone: [phone] Performed By: #### L 500.2500, L3300.0940 ####[facility] [address] [place], [address] Basic Metabolic Profile (BMP )on 05-25-2024 BUN/CRE 17.9 RATIO Normal - [facility] Comment on above: Performed By: #### L 500.2500, L3300.0940 #### [facility] Laboratory [address] [place], [address] CA,Total 9.2 mg/dL Normal 8.5-10.1 [facility] Comment on above: Performed By: #### L 500.2500, L3300.0940 #### [facility] [address] [place], [address] Chloride [Moles/Vol] 108 mmol/L High 98-107 [facility] Comment on above: Performed By: #### L 500.2500, L3300.0940 #### [facility] [address] [place], [address] CO2 [Moles/Vol] 27.0 mmol/L Normal 21.0-32.0 [facility] Comment on above: Performed By: #### L 500.2500, L3300.0940 #### [facility] [address] [place], [address] Creatinine [Mass/Vol] 0.67 mg/dL Normal 0.55-1.02 [facility] Comment on above: Result Comment: The validity of the calculated GFR GFRAA in patients over 70 years has not been determined. Clinical correlation is essential. Performed By: #### L 500.2500, L3300.0940 #### [facility] [address] [place], [address] EST GFR - AA 109 mL/min Normal >60 [facility] Comment on above: Result Comment: Afri can Welsh GFR Calc Performed By: #### L 500.2500, L3300.0940 #### [facility] [address] [place], [address] GAP 6 Normal 5-15 [facility] Comment on above: Performed By: #### L 500.2500, L3300.0940 #### [facility] [address] [place], [address] GFR/1.73 sq M.predicted among non-blacks MDRD (S/P/Bld) [Vol rate/Area] 90 mL/min/{1.73_m2} Normal >60 [facility] Comment on above: Result Comment: Non- GFR Calc Performed By: #### L 500.2500, L3300.0940 #### [facility] [address] [place], [address] Glucose [Mass/Vol] 89 mg/dL Normal 74-106 [facility] Comment on above: Performed By: #### L 500.2500, L3300.0940 #### [facility] [address] [place], [address] Potassium [Moles/Vol] 4.1 mmol/L Normal 3.5-5.1 [facility] Comment on above: Performed By: #### L 500.2500, L3300.0940 #### [facility] [address] [place], [address] Sodium [Moles/Vol] 141 mmol/L Normal 136-145 [facility] Comment on above: Performed By: #### L 500.2500, [id number] #### [facility] [address] [place], [address] Urea nitrogen [Mass/Vol] 12 mg/dL Normal 7-18 [facility] Comment on above: Performed By: #### L 500.2500, L3300.0940 #### [facility] [address] [place], [address] Internal Medicine Office Vis itovera 05-25-2024 Internal Medicine Office Visit [place] [facility] [address] [place] [address] [place] [address] OFFICE VISIT Date of Service: 05/25/24 MR#: [id number] Acct: [id number] Name: KAREEM VÁSQUEZ Rep #: [id number] : 1945 Provider: Dr. Lorene crawford MD Age/Sex: 78/F Location: [facility] Status: Signed Intake Vital Signs 11/13/23 13:19 05/25/24 10:03 Height 5 ft 1 in 5 ft 1 in Weight: 131 lb BMI 24.7 BP 112/66 Blood Pressure Location Lt brachial Position Sitting Respiration 14 Pulse 82 Pulse Source Monitor Temp 97.4 F L Temp Source Temporal Pulse Oximetry (%) 97 Oxygen Delivery Method room air Intake Visit Reasons: 6 M FU Chief Complaint: Follow-up chronic conditions. Back pain. Channel Sales Manager Required: No Is patient in pain?: No Allergies oxycodone (From Percocet) Allergy (Mild, Verified 05/25/24 09:59) nausea Medications ???Medication ???Instructions ???Recorded ???Confirmed ???Type alendronate 70 mg tablet (Fosamax) 70 mg PO QWEEK #14 tabs 05/25/24 05/25/24 Rx cyclobenzaprine 5 mg tablet 5 mg PO TID PRN muscle spasm #60 05/25/24 05/25/24 Rx tabs pantoprazole 20 mg tablet,delayed 20 mg PO QDAY #90 tabs 05/25/24 05/25/24 Rx release Have you fallen in the past year?: No [facility] Medical History (Updated 05/25/24 @ 13:[address] Lorene Skaggs MD) Flu vaccine need Chronic back pain Vitamin D insufficiency Osteoporosis Health care maintenance Hyperlipidemia Cataract Breast lump Alcohol use Arthritis Gastric reflux Non-smoker Carpal tunnel syndrome on both sides Surgical History H/O breast biopsy s/p right carpal tunnel release s/p left carpal tunnel release s/p finger surgery S/P cataract extraction S/P bunionectomy Family History Mother Heart disease CVA (cerebral vascular accident) Father Emphysema of lung Dementia Grandmother Cancer lymphoma CVA (cerebral vascular accident) Social History household members: significant other housing: house current occupational status: retired Smoking Status: Never smoker alcohol intake: current alcohol intake frequency: a few times a week Alcohol type: wine substance use type: does not use what type of physical activity do you participate in: walking frequency: 3-4 times per week seatbelt use: always do you feel safe at home: Yes HPI HPI Chief Complaint: Follow-up chronic conditions. Back pain. Details: KAREEM VÁSQUEZ, is a 78 F who presents to the office today for follow-up of her chronic conditions. Also has some concerns. She reports back pain which started during the summer. Lifted something and since then, has had intermittent tightness in her lower back. No numbness or tingling down her extremity. No change in bowel or bladder habit. Pain is reproducible with movements. History of osteoporosis and at her last visit, was started on Fosamax. Tolerating medication well. No burning or concerns reported. Other chronic conditions are stable. ROS Const Constitutional: No body ache, chills, excessive sweating, fatigue, fever(s), frequent falls, headache(s), snoring, weakness, sleep problems or change in appetite Eyes Eyes: No blurry vision, change in vision, floaters, visual disturbances, eye pain or Light sensitivity ENT ENT: No abnormal hearing, ear or mastoid pain, tinnitus, balance problems, nosebleed/epistaxis, nasal congestion, headache(s), neck pain or sore throat Resp Respiratory: No cough, excessive phlegm production, pain on inspiration, shortness of breath, snoring or wheezing Cardio Cardiology: No chest pain at rest, chest pain with exertion, excessive sweating, shortness of breath, dyspnea on exertion, lightheadedness, orthopnea or palpitations Gastro GI: No abdominal pain, change in bowel habits, constipation, cramping, diarrhea, nausea/dyspepsia or vomiting Genitourinary-Female: No burning urination, painful urination, urinary incontinence, urinary frequency, abnormal vaginal bleeding or pelvic pain Musc Musculoskeletal: No abnormal gait, joint pain, back pain, limited range of motion, neck pain or numbness Skin Skin: No dry skin, redness, excessive hair growth, yellowing of the eye, lesions, itchy eyes, rash or wounds Neuro Neurology: No abnormal gait, abnormal hearing, weakness, frequent falls, headache(s), memory loss, numbness or visual disturbances Psych Psychiatric: No anxiety, No change in appetite, No depression, No memory loss and No Thoughts of harming yourself/Others Endo Endocrine: No cold intolerance, excessive sweating, fatigue, flushing, heat intolerance, increased thirst/drinking or increased hunger (more content not included)... Normal [facility] Basophil percentageOrdered B y: Lorene Skaggs on 11-13-2023 Chloride [Moles/Vol] 107 mmol/L 98-107 [facility] Glucose [Mass/Vol] 81 mg/dL 74-106 [facility] Potassium [Moles/Vol] 4.2 mmol/L 3.5-5.1 [facility] Sodium [Moles/Vol] 141 mmol/L 136-145 [facility] Laboratory - Chemistry and C hemistry - challengeOrdered By: Lorene Skaggs on 11-13-2023 CO2 [Moles/Vol] 31.0 mmol/L 21.0-32.0 [facility] Urea nitrogen/Creatinine [Mass ratio] 20.8 mg/mg 10-20 [facility] No Panel InformationOrdered By: Lorene Skaggs on 11-13-2023 Estimated GFR (MDRD) Amer 109 mL/min >60 [facility] Comment on above: GFR Calc Estimated GFR (MDRD) Non-Af Amer 90 mL/min >60 [facility] Comment on above: Non- GFR Calc Vitamin D 25-Hydroxy 22.4 ng/mL [facility] Comment on above: Vitamin D 25(OH) Sta tus Range Deficiency <20 ng/mL (50nmol/L) Insufficiency 20 - 30 ng/mL (50 - 75 nmol/L) Sufficiency 30 - 100 ng/mL (75 - 250 nmol/L) Toxicity >100 ng/mL (>250 nmol/L) Serum or plasma calcium pastora urement (mass/volume)Ordered By: Lorene Skaggs on 11-13-2023 Calcium [Mass/Vol] 9.1 mg/dL 8.5-10.1 [facility] Serum or plasma creatinine m easurement (mass/volume)Ordered By: Lorene Skaggs on 11-13-2023 Creatinine [Mass/Vol] 0.67 mg/dL 0.55-1.02 [facility] Comment on above: The validity of the calculated GFR & GFRAA in patients over 70 years has not been determined. Clinical correlation is essential. Serum or plasma urea nitroge n measurement (mass/volume)Ordered By: Lorene Skaggs on 11-13-2023 Urea nitrogen [Mass/Vol] 14 mg/dL 7-18 [facility] Thin prep Papanicolaou smear with manual screeningOrdered By: judkirtlandruthann Skaggs on 11-13-2023 Thin prep Papanicolaou smear with manual screening 3 5-15 [facility] Absolute lymphocyte countOrd ered By: Lorene Skaggs on 10-14-2023 Lymphocytes Auto (Unsp spec) [#/Vol] 1.41 10*3/uL 0.83-4.51 [facility] Automated lymphocyte count a s percentage of total leukocytesOrdered By: Lorene Skaggs on 10-14-2023 Lymphocytes/100 WBC Auto (Unsp spec) 38.2 % 19-41 [facility] Basophil percentageOrdered B y: Lorene Skaggs on 10-14-2023 Basophils/100 WBC (Bld) 0.5 % 0-1 [facility] Bilirubin [Mass/Vol] 0.70 mg/dL 0.20-1.00 [facility] Comment on above: For patients on eltr ombopag therapy, use of Dimension [place] TBIL is not recommended. Chloride [Moles/Vol] 110 mmol/L 98-107 [facility] Cholesterol [Mass/Vol] 242 mg/dL <200 [facility] Comment on above: <200 mg/dL Desirable 200-240 mg/dL Borderline >240 mg/dL High Risk Eosinophils/100 WBC (Bld) 0.3 % 0-5 [facility] Glucose [Mass/Vol] 88 mg/dL 74-106 [facility] Hemoglobin (Bld) [Mass/Vol] 15.3 g/dL 12.0-15.0 [facility] Monocytes/100 WBC (Bld) 14.9 % 0-10 [facility] Neutrophils (Bld) [#/Vol] 1.7 10*3/uL 2.0-7.7 [facility] Neutrophils/100 WBC (Bld) 45.8 % 47-70 [facility] Potassium [Moles/Vol] 4.1 mmol/L 3.5-5.1 [facility] Protein [Mass/Vol] 6.8 g/dL 6.4-8.2 [facility] Sodium [Moles/Vol] 140 mmol/L 136-145 [facility] Triglyceride [Mass/Vol] 67 mg/dL <199 [facility] Comment on above: The drugs N-Acetylcy steine and Metamizole may falsely depress this assay.Serum Triglycerides Reference Interval Normal <150 mg/dL Borderline high 150 - 199 mg/dL High 200 - 499 mg/dL Very High > or = 500 mg/dL WBC (Bld) [#/Vol] 3.7 10*3/uL 4.4-11.0 [facility] Determination of erythrocyte mean corpuscular volume (MCV)Ordered By: Lorene Skaggs on 10-14-2023 MCV (RBC) [Entitic vol] 94.9 fL 81-99 [facility] Erythrocyte distribution wid th ratioOrdered By: Lorene Skaggs on 10-14-2023 Erythrocyte distribution width (RBC) [Ratio] 12.8 % 11.6-14.6 [facility] Erythrocyte distribution wid th standard deviationOrdered By: [facility]uthann Skaggs on 10-14-2023 Erythrocyte distribution width (RBC) [Entitic vol] 45.0 fL 35.1-43.9 [facility] Hematocrit Auto (Bld) [Volum e fraction]Ordered By: Lorene Skaggs on 10-14-2023 Hematocrit (Bld) [Volume fraction] 46.4 % 37-47 [facility] Immature granulocytes/100 WB C Auto (Bld)Ordered By: [facility] Skaggs on 10-14-2023 Immature granulocytes/100 WBC (Bld) 0.300 % 0.0-0.9 [facility] Comment on above: IG% - Immature Granu locytes (promyelocytes, myelocytes and metamyelocytes) > 1% indicates that a LEFT SHIFT is Present. Laboratory - Chemistry and C hemistry - challengeOrdered By: [facility]ann Skaggs on 10-14-2023 Albumin/Globulin [Mass ratio] 1.1 {ratio} 0.9-2.4 [facility] ALP [Catalytic activity/Vol] 114 U/L 45-117 [facility] ALT [Catalytic activity/Vol] 18 U/L 13-56 [facility] Cholesterol in HDL [Mass/Vol] 80 mg/dL >40 [facility] Comment on above: The drugs N-Acetylcy steine and Metamizole may falsely depress this assay. Reference Range HDL <40 mg/dL Low HDL Cholesterol HDL >or= 60 mg/dL High HDL Cholesterol Cholesterol in LDL [Mass/Vol] 149 mg/dL 0-130 [facility] CO2 [Moles/Vol] 26.0 mmol/L 21.0-32.0 [facility] Globulin (S) [Mass/Vol] 3.3 g/dL 2.2-4.2 [facility] Urea nitrogen/Creatinine [Mass ratio] 19.0 mg/mg 10-20 [facility] Laboratory - Hematology and Cell countsOrdered By: judkirtlandruthann Skaggs on 10-14-2023 MCH (RBC) [Entitic mass] 31.3 pg 27.0-32.0 [facility] MCHC (RBC) [Mass/Vol] 33.0 g/dL 32-36 [facility] Nucleated RBC/100 WBC (Bld) [Ratio] 0 % 0-5 [facility] Platelet mean volume (Bld) [Entitic vol] 11.0 fL 6.2-12.0 [facility] Platelets (Bld) [#/Vol] 167 10*3/uL 150-450 [facility] No Panel InformationOrdered By: Lorene Skaggs on 10-14-2023 Estimated GFR (MDRD) Amer 117 mL/min >60 [facility] Comment on above: GFR Calc Estimated GFR (MDRD) Non-Af Amer 97 mL/min >60 [facility] Comment on above: Non- GFR Calc VLDL Cholesterol 13 mg/dL 5-40 [facility] RBC Auto (Bld) [#/Vol]Ordere d By: Lorene Skaggs on 10-14-2023 RBC (Bld) [#/Vol] 4.89 10*6/uL 4.2-5.4 [facility] Serum or plasma calcium pastora urement (mass/volume)Ordered By: Lorene Skaggs on 10-14-2023 Calcium [Mass/Vol] 9.4 mg/dL 8.5-10.1 [facility] Serum or plasma creatinine m easurement (mass/volume)Ordered By: Lorene Skaggs on 10-14-2023 Creatinine [Mass/Vol] 0.63 mg/dL 0.55-1.02 [facility] Comment on above: The validity of the calculated GFR & GFRAA in patients over 70 years has not been determined. Clinical correlation is essential. Serum or plasma urea nitroge n measurement (mass/volume)Ordered By: Lorene Skaggs on 10-14-2023 Urea nitrogen [Mass/Vol] 12 mg/dL 7-18 [facility] Thin prep Papanicolaou smear with manual screeningOrdered By: Lorene Skaggs on 10-14-2023 Thin prep Papanicolaou smear with manual screening 3.5 g/dL 3.2-5.0 [facility] Thin prep Papanicolaou smear with manual screening 13 U/L 15-37 [facility] Thin prep Papanicolaou smear with manual screening 4 5-15 [facility] CNCOon 12-14-2020 CNCO HNO ID: [id number] Author: Mammography Coordinator Service: ? Author Type: Physician Type: Letter Filed: 12/17/2020 11:36 PM Note Text: December 14, 2020 PID: [id number] Kareem Vásquez [address] [place] [address] Dear Yeni GageBess, We are pleased to inform you that the results of your recent breast imaging exam on 12/14/2020 are normal. Your mammogram demonstrates that you have dense breast tissue, which could hide abnormalities. Dense breast tissue, in and of itself, is a relatively common condition. Therefore, this information is not provided to cause undue concern; rather, it is to raise your awareness and promote discussion with your health care provider regarding the presence of dense breast tissue in addition to other risk factors. Early detection of cancer is very important. We also understand recommendations regarding breast cancer screening are controversial. Please discuss with your primary care provider which strategy is best for you and whether a mammogram is right for you. Your imaging studies and report will be kept on file at [facility] as part of your permanent medical record and are available for your continuing care. Thank you for allowing us to help in meeting your health care needs. Sincerely, Dr. Piper Interpreting Radiologist [facility] (Normal over 40) Normal [facility] BI SCREENING W TOMOon 12-14 BI SCREENING W RADHA * * *Final Report* * * DATE OF EXAM: Dec 14 2020 9:56AM [facility] [id number] - BI SCREENING W RADHA / PROCEDURE REASON: Mammogram Screening Bilateral 3D * * * * Physician Interpretation * * * * RESULT: #[id number] - BI SCREENING W RADHA BILATERAL DIGITAL SCREENING MAMMOGRAM TOMOSYNTHESIS WITH CAD: 12/14/2020 HISTORY: Mammogram Screening Bilateral 3d Screening Mammogram with RADHA - patient reports NO breast symptoms /patient reports NO breast symptoms. RESULT: TECHNIQUE: The study was acquired using full field digital technology and interpreted from soft copy. Digital Breast Tomosynthesis (DBT) images were obtained and used to assist in the interpretation of this examination. Current study was also evaluated with a Computer Aided Detection (CAD). Comparison is made to exams dated: 07/06/2017 mammogram and 06/23/2016 mammogram - [facility]. The tissue of both breasts is extremely dense, which lowers the sensitivity of mammography. There is a biopsy clip in the right breast. No significant masses, calcifications, or other findings are seen in either breast. There has been no significant interval change. IMPRESSION: NEGATIVE There is no mammographic evidence of malignancy. A 1 year screening mammogram is recommended. Lucita Piper M.D., ch/ramonita:12/14/2020 16:39:45 Surface Water Manager(s): Mariella Moody RT(R)(M), [facility] letter sent: Normal over 40 Mammogram BI-RADS: 1 Negative Multiple national specialty organizations have released breast cancer screening guidelines for women at average risk for developing breast cancer - guidelines that are based on both evidence and opinion, yet differ on when to start and how often to screen for breast cancer. With representation from Breast Imaging, Internal Medicine, Women's Health, Family Medicine, and Medical/Surgical Oncology, the [facility] has carefully reviewed the data and reached the following consensus: 1) All women should engage in shared decision-making with their providers to decide when to start and how often to screen; 2) All women should have the opportunity to start screening mammography at age 40; 3) For women ages 45-55, we recommend annual screening mammograms; 4) For women ages 55 and over, we support both the transition from an annual to a biennial interval if this aligns more with patient's values and preferences, or continuation with annual screening; 5) All women should discuss with their providers when to stop screening mammograms. Cardiovascular Disease Specialist: Ramonita Transcribe Date/Time: Dec 14 2020 9:26A Dictated by: LUCITA PIPER MD This examination was interpreted and the report reviewed and electronically signed by: LUCITA PIPER MD on Dec 14 2020 4:39PM EST [id number] Normal [facility] Vital Signs Date Time Vital Sign Value Performing Clinician Faci litkeenan 11-23-2024 10:110400 Body height 154.[address] Lorene Skaggs MD Work Phone: [facility] 11-23-2024 10:110400 Body mass index (BMI) [Ratio] 24.1 kg/m2 Dr. Lorene Skaggs MD Work Phone: [facility] 11-23-2024 10:11040 Body temperature 97.7 [degF] Dr. Lorene Skaggs MD Work Phone: [facility] 11-23-2024 10:11-0400 Body weight 58.[address] Lorene Skaggs MD Work Phone: [facility] 11-23-2024 10:11-0400 Diastolic blood pressure 80 mm[Hg] Dr. Lorene Skaggs MD Work Phone: [facility] 11-23-2024 10:11-0400 Heart rate 80 /min Dr. Lorene Skaggs MD Work Phone: [facility] 11-23-2024 10:11-0400 Respiratory rate 16 /min Dr. Lorene Skaggs MD Work Phone: [facility] 11-23-2024 10:11-0400 SaO2% (BldA) [Mass fraction] 95 % Dr. Lorene Skaggs MD Work Phone: [facility] 11-23-2024 10:11-0400 Systolic blood pressure 118 mm[Hg] Dr. Lorene Skaggs MD Work Phone: [facility] 11-16-2024 09:02-0400 Body mass index (BMI) [Ratio] 24.3 kg/m2 Dr. Lorene Skaggs MD Work Phone: [facility] 11-16-2024 09:02-0400 Body weight 58.[address] Lorene Skaggs MD Work Phone: [facility] 11-08-2024 12:45-0400 Body height 154.[address] Lorene Sakggs MD Work Phone: [facility] 11-08-2024 12:45-0400 Body mass index (BMI) [Ratio] 23.6 kg/m2 Dr. Lorene Skaggs MD Work Phone: [facility] 11-08-2024 12:45-0400 Body temperature 98.3 [degF] Dr. Lorene Skaggs MD Work Phone: [facility] 11-08-2024 12:45-0400 Body weight 56.[address] Lorene Skaggs MD Work Phone: [facility] 11-08-2024 12:45-0400 Diastolic blood pressure 68 mm[Hg] Dr. Lorene Skaggs MD Work Phone: [facility] 11-08-2024 12:45-0400 Heart rate 80 /min Dr. Lorene Skaggs MD Work Phone: [facility] 11-08-2024 12:45-0400 SaO2% (BldA) [Mass fraction] 96 % Dr. Lorene Skaggs MD Work Phone: [facility] 11-08-2024 12:45-0400 Systolic blood pressure 110 mm[Hg] Dr. Lorene Skaggs MD Work Phone: [facility] 11-13-2023 13:19-0400 Body height 154.[address] Garcia [facility] 11-13-2023 13:19-0400 Body mass index (BMI) [Ratio] 26.2 kg/m2 Dr. Garcia [facility] 11-13-2023 13:19-0400 Body temperature 98 [degF] Dr. Garcia [facility] 11-13-2023 13:19-0400 Body weight 63.[address] Garcia [facility] 11-13-2023 13:19-0400 Diastolic blood pressure 86 mm[Hg] Dr. Garcia [facility] 11-13-2023 13:19-0400 Heart rate 84 /min Dr. Garcia [facility] 11-13-2023 13:19-0400 Respiratory rate 17 /min Dr. Garcia [facility] 11-13-2023 13:19-0400 SaO2% (BldA) [Mass fraction] 97 % Dr. Garcia [facility] 11-13-2023 13:19-0400 Systolic blood pressure 138 mm[Hg] Dr. Garcia [facility] 10-14-2023 10:06-0500 Body height 154.[address] Garcia [facility] 10-14-2023 10:06-0500 Body mass index (BMI) [Ratio] 25.5 kg/m2 Dr. Garcia [facility] 10-14-2023 10:06-0500 Body temperature 97.8 [degF] Dr. Garcia [facility] 10-14-2023 10:06-0500 Body weight 61.[address] Garcia [facility] 10-14-2023 10:06-0500 Diastolic blood pressure 72 mm[Hg] Dr. Garcia [facility] 10-14-2023 10:06-0500 Heart rate 78 /min Dr. Garcia [facility] 10-14-2023 10:06-0500 Respiratory rate 16 /min Dr. Garcia [facility] 10-14-2023 10:06-0500 SaO2% (BldA) [Mass fraction] 98 % Dr. Garcia [facility] 10-14-2023 10:06-0500 Systolic blood pressure 124 mm[Hg] Dr. Garcia [facility] Encounters Encounter Date Encounter Type Care Provider Facility Start: 12-08-2024 End: 12-08-2024 ambulatory Francisco CORDOBA Facility:[facility] Start: 11-29-2024 End: 11-29-[address] Lorene Skaggs MD Work Phone: [facility] Work Phone: Start: 11-29-2024 End: 11-29-[address] Lorene Skaggs MD -Outpatient Breast Imaging Work Phone: Start: 11-29-2024 End: 11-29-2024 ambulatory Lorene Skaggs Facility:[facility] Start: 11-23-2024 End: 11-23-[address] Lorene Skaggs MD -[facility] Work Phone: Start: 11-23-2024 End: 11-23-[address] Lorene Skaggs MD [facility] Start: 11-23-2024 End: 11-23-[address] Lorene Skaggs MD Work Phone: [facility] Work Phone: Start: 11-23-2024 End: 11-23-2024 ambulatory [facility] Facility:[facility] Start: 11-16-2024 End: 11-16-[address] Alfredo Arrieta DO -[facility] Work Phone: Start: 11-16-2024 End: 11-16-2024 ambulatory Alfredo Arrieta Facility:[facility] Start: 11-08-2024 End: 11-08-2024 Patient encounter procedure Francisco CORDOBA -[facility] Work Phone: Start: 11-08-2024 End: 11-08-[address] Lorene Skaggs MD Work Phone: [facility] Work Phone: Start: 11-08-2024 End: 11-08-2024 ambulatory Francisco CORDOBA Facility:[facility] Start: 05-25-2024 End: 05-25-2024 ambulatory [facility] Facility:[facility] Start: 05-25-2024 End: 05-25-2024 ambulatory [facility] Facility:[facility] Start: 11-13-2023 End: 11-13-[address] Jose Velasquez [facility] Work Phone: Start: 11-13-2023 End: 11-13-[address] Jose Velasquez [facility] Work Phone: Start: 11-11-2023 End: 11-11-[address] Jose Velasquez [facility] Work Phone: Start: 11-11-2023 End: 11-11-[address] Jose Velasquez [facility]-Outpatient Bone Densitometry Work Phone: Start: 10-14-2023 End: 10-14-[address] Jose Velasquez [facility] Work Phone: Start: 10-14-[address] Jose Velasquez [facility] Start: 10-14-2023 End: 10-14-2023 Encounter for general adult medical examination without abnormal findings Dr. Jose Velasquez [facility] Start: 10-14-2023 End: 10-14-[address] [facility] Work Phone: Procedures Date Procedure Procedure Detail Performing Clinician Start: 11-29-2024 Screening mammography Hilary Skaggs MD Work Phone: Start: 11-08-2024 X-ray of knee, four or more views Dr. Lorene Skaggs MD Work Phone: Start: 11-11-2023 Dual energy X-ray absorptiometry Dr. Jose Velasquez Start: 11-11-2023 Screening mammography Hilary Velasquez Plan of Treatment Date Care Activity Detail Author Start: 11-29-2024 MG Breast - bilatera l Screening [facility] Start: 11-08-2024 Patient referral [facility] Work Phone: Start: 11-11-2023 MG Breast - bilatera l Screening [facility] Start: 11-11-2023 Screening mammography [facility] Start: 10-14-2023 Patient referral [facility] Work Phone: DXA Bone [Mass/Area] Bone density [facility] MG Breast - bilatera l Screening [facility] MR Lower Extremity Joint [facility] Patient referral [facility] Work Phone: Immunizations Immunization Date Immunization Notes Care Provider [facility] 05-25-2024 Seasonal trivalent influenza vaccine, adjuvanted, preservative free Dr. Lorene Skaggs MD Work Phone: [facility] 12-21-[address] Lorene Skaggs MD Work Phone: [facility] 10-14-2023 Pneumococcal Vaccine PCV20 (Prevnar 20) Dr. Lorene Skaggs MD Work Phone: [facility] 10-14-[address] Lorene Skaggs MD Work Phone: [facility] 07-17-2023 RSV Adult BiValent (Abrysvo) Dr. Lorene Skaggs MD Work Phone: [facility] 06-11-2023 influenza, injectabl e, quadrivalent, preservative free Dr. Lorene Skaggs MD Work Phone: [facility] 05-20-2022 Covid Pfizer Bivalen t Booster Dr. Lorene Skaggs MD Work Phone: [facility] 05-20-2022 influenza, injectabl e, quadrivalent, preservative free Dr. Lorene Skaggs MD Work Phone: [facility] 12-14-2021 Covid (Moderna) Dr. Sridhar Skaggs MD Work Phone: [facility] 06-04-2021 Covid (Moderna) Dr. Sridhar Skaggs MD Work Phone: [facility] 06-04-2021 influenza, injectabl e, quadrivalent, preservative free Dr. Lorene Skaggs MD Work Phone: [facility] 05-30-2019 influenza, injectabl e, quadrivalent, preservative free Dr. Lorene Skaggs MD Work Phone: [facility] 06-05-2018 influenza, injectabl e, quadrivalent, preservative free Dr. Lorene Skaggs MD Work Phone: [facility] 06-09-2017 influenza, seasonal, injectable, preservative free Dr. Lorene Skaggs MD Work Phone: [facility] 06-20-2016 influenza, seasonal, injectable, preservative free Dr. Lorene Skaggs MD Work Phone: [facility] 06-05-2015 influenza, high dose seasonal, preservative-free Dr. Lorene Skaggs MD Work Phone: [facility] Payers Date Payer Category Payer Self-pay [id number] 2023 Medicare [id number] 2023 Private Health Insurance [id number] Unknown [id number] [id number] [id number] Unknown [id number] 2.16.8 [id number] Unknown [id number] 2.16.8 [id number] Unknown [id number] 2.16.8 [id number] Unknown [id number] 2.16.8 [id number] Unknown [id number] 2.16.8 [id number] Unknown [id number] 2.16.8 [id number] Unknown [id number] 2.16.8 [id number] Unknown [id number] 2.16.8 [id number] Social History Date Type Detail Facility Start: 10-14-2023 End: 11-13-2023 Tobacco smoking status NHIS Unknown if ever smoked [facility] Start: 12-31-2020 Non-smoker [facility] Start: 1945 Sex Assigned At Female [facility] Start: 11-13-2023 Tobacco smoking stat us NHIS Never smoked tobacco (finding) [facility] Start: 11-14-2024 End: 12-05-2024 Sex Female (finding) [facility] Evaluation note 11-08-2024 Note Date & Type Note Facility 11-08-2024 Evaluation note Diagnosis Onset Date Resolution Internal derangement of right knee acute November 08, 2024 12:33pm Strain of right knee acute Apri l 2024 12:33pm [facility] Work Phone: Evaluation note 11-08-2024 Note Date & Type Note Facility 11-08-2024 Evaluation note Diagnosis Onset Date Resolution Internal derangement of right knee acute November 08, 2024 12:33pm Strain of right knee acute Apri l 2024 12:33pm Internal derangement of right knee acute November 16, 2024 8:58am Osteoarthritis of right knee chronic November 16, 2024 8:58am Health care maintenance acute A pril 2024 10:01am Chronic back pain chronic November 082024 10:01am Hyperlipidemia chronic November 10:01am Osteoarthritis of right knee chronic November 23, 2024 10:01am Osteoporosis chronic November 23, 2024 10:01am [facility] Work Phone: Radiology Diagnostic study note 11-08-2024 Note Date & Type Note Facility 11-08-2024 Radiology Diagnostic study note [facility] [address] [place], [place] [address] Knee 4 or More Views MR#: [id number] Acct: [id number] Name: KAREEM VÁSQUEZ Rep #: [id number] 1 : 1945 F 79 From: Gerald Estrada MD PCP: Dr. Lorene Skaggs MD Status: R EG CLI Study:Knee 4 or More Views Date of Exam: 11/08/24 Exam# [id number] Ordering Dr: [facility] PROCEDURE: KNEE 4 OR MORE VIEWS 11/08/2024 REASON FOR EXAM: PAIN No known injury. TECHNIQUE: 4 view(s) of the right knee COMPARISON: None FINDINGS: Bones: Unremarkable. Joints: Moderate degree of joint space narrowing of the medial compartment of the knee joint. Mild degree of osteoarthritis of the patellofemoral joint. Effusion: Small joint effusion. Soft tissues: Soft tissues are unremarkable. 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 Small joint effusion. Reading Location: [id number] CC: Dr. Lorene Skaggs MD; ADALID Hutchinson ~ Cardiovascular Disease Specialist: Signed [facility] Progress note 12-14-2020 Note Date & Type Note Facility 12-14-2020 Note HNO ID: [id number] Author: Terrell eParce Service: ? Author Type: Locomotive P[employer] Type: Progress Notes Filed: 12/14/2020 9:34 AM Note Text: Radiology Service Progress Note PATIENT NAME: Kareem Vásquez DATE OF SERVICE: December 14, 2020 [...] Terrell Pearce December 14, 2020 9:[address] [facility] Clinical Note 10-02-2020 Note Date & Type Note Facility 10-02-2020 Note Patient Outreach ([place] [facility]) KAREEM VÁSQUEZ ([id number]) 1945 F Date Time Provider Department 10/02/20 KERRIS, MELBA BURNS During your visit today, we recorded the following information about you: Allergies As of Date: 10/02/2020 Noted Allergy Reaction VICODIN (HYDROCODONE-ACETAMINOPHE*01/02/2009 8 - GI Upset Date Reviewed: 07/23/2019 Reviewed by: Nuvia Dee - Fully Assessed Order(s):SARS-COVID VACCINE 1ST DOSE APPT [[id number]] Order #: [id number] FUTURE Problem List As Of Date 10/02/2020 [...] unspecified [R92.8] 08/17/2009 08/14/2016 Encounter Status:Closed by [employer], [employer] on 10/05/20 [facility] Evaluation note Note Date & Type Note Facility Evaluation note Diagnosis Onset Date Health care maintenance acut e GERD (gastroesophageal reflux disease) chronic Hyperlipidemia [facility] Work Phone: Evaluation note Note Date & Type Note Facility Evaluation note Diagnosis Onset Date Health care maintenance acut e GERD (gastroesophageal reflux disease) chronic Hyperlipidemia chronic Osteoporosis acute Vitamin D insufficiency acut e GERD (gastroesophageal reflux disease) [facility] Work Phone: Summary Purpose Family History No Family History Records Found Relationship Condition Age at Onset Recorded Date/T jude mother Cardiac disease Unknown Cerebrovascular accident (CVA) Unknown father Pulmonary emphysema Unknown Dementia Unknown grandmother Malignant neoplasm Unknown Advance Directives No Advanced Directives Records Found Advance Directive Response Recorded Date/ Time Living Will Yes December 31, 2020 1 1:46am Power of Sponge Hooker Yes December 31, 2020 11:46am Advance Directive Response Recorded Date/ Time Living Will Yes December 31, 2020 1 1:46am Do you have a Healthcare Power of Sponge Hooker? 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[facility] - PPW S ENT SCREENING OSTEOPOROSIS DISCUSSION Reason for Visit Health care maintena nce GERD (gastroesophageal reflux disease) Hyperlipidemia Osteoporosis Vitamin D insufficiency GERD (gastroesophageal reflux disease) Chief Complaint Admit Date R KNEE PAIN November 08, 2024 12:3 3pm E-ORDER November 08, 2024 1:04 pm Reason for Visit Admit Date Internal derangement of right knee November 08, 2024 12:33pm Strain of right knee November 08, 2024 12: 33pm Chief Complaint Admit Date R KNEE PAIN November 08, 2024 12:3 3pm E-ORDER November 08, 2024 1:04 pm RIGHT KNEE November 16, 2024 8:58 am 6 M FU November 23, 2024 10: 01am Reason for Visit Admit Date Internal derangement of right knee November 08, 2024 12:33pm Strain of right knee November 08, 2024 12: 33pm Internal derangement of right knee November 16, 2024 8:58am Osteoarthritis of right knee November 16, 2024 8:58am Health care maintenance November 23, 2024 10:01am Chronic back pain November 23, 2024 10: 01am Hyperlipidemia November 23, 2024 10: 01am Osteoarthritis of right knee November 23, 2024 10:01am Osteoporosis November 23, 2024 10: 01am Chief Complaint Admit Date R KNEE PAIN November 08, 2024 12:3 3pm E-ORDER November 08, 2024 1:04 pm RIGHT KNEE November 16, 2024 8:58 am 6 M FU November 23, 2024 10: 01am Breast cancer screening November 29, 2024 8:10am Additional Source Comments INFORMATION SOURCE (unrecogn ized section and content) DATE CREATED AUTHOR 09/05/2021 [facility] DATE CREATED AUTHOR AUTHOR'S ORGANIZ ATION 12/16/2024 [facility] Care Teams (unrecognized sec tion and content) Team Status: Active Member Role Status Dates Dr. Jose Velasquez MD Family Provider Active Dr. Lorene Skaggs MD Primary Care Provider Active Team Status: Inactive Member Role Status Dates Dr. Jose Velasquez MD Primary Care Provider, Referring Provider Active Dr. Lorene Skaggs MD Attending Provider Active Team Status: Inactive Member Role Status Dates Dr. Lorene Skaggs MD Primary Care Provider, Atten ding Provider Active Team Status: Inactive Member Role Status Dates Dr. Lorene Skaggs MD Primary Care P rovider, Attending Provider, Referring Provider Active Team Status: Active Member Role Status Dates Dr. Lorene Skaggs MD Primary Care P rovider, Attending Provider, Referring Provider Active Team Status: Active Member Role Status Dates Dr. Lorene Skaggs MD Primary Care Provider Active Team Status: Inactive Member Role Status Dates Dr. Lorene Skaggs MD Primary Care Provider Active Start: November 08, 2024 End: November 08, 2024 Dr. Lorene Skaggs MD Referring Provider Active Start: November 08, 2024 End: November 08, 2024 ADALID Thomson Attending Provider Active Start: November 08, 2024 End: November 08, 2024 Team Status: Inactive Member Role Status Dates Dr. Lorene Skaggs MD Primary Care Provider Active Start: November 08, 2024 End: November 08, 2024 ADALID Thomson Attending Provider Active Start: November 08, 2024 End: November 08, 2024 ADALID Thomson Referring Provider Active Start: November 08, 2024 End: November 08, 2024 Team Status: Inactive Member Role Status Dates Dr. Lorene Skaggs MD Primary Care Provider Active Start: November 16, 2024 End: November 16, 2024 Dr. Lorene Skaggs MD Referring Provider Active Start: November 16, 2024 End: November 16, 2024 Dr. Alfredo Arrieta DO Attending Provider Active Start: November 16, 2024 End: November 16, 2024 Team Status: Inactive Member Role Status Dates Dr. Lorene Skaggs MD Primary Care Provider Active Start: November 23, 2024 End: November 23, 2024 Dr. Lorene Skaggs MD Attending Provider Active Start: November 23, 2024 End: November 23, 2024 Dr. Lorene Skaggs MD Referring Provider Active Start: November 23, 2024 End: November 23, 2024 Team Status: Inactive Member Role Status Dates Dr. Lorene Skaggs MD Primary Care Provider Active Start: November 29, 2024 End: November 29, 2024 Dr. Lorene Skaggs MD Attending Provider Active Start: November 29, 2024 End: November 29, 2024 Dr. Lorene Skaggs MD Referring Provider Active Start: November 29, 2024 End: November 29, 2024 Goals (unrecognized section and content) Goals may be documented in a n alternate sectionGoals may be documented in an alternate sectionGoals may be documented in an alternate sectionGoals may be documented in an alternate sectionGoals may be documented in an alternate sectionGoals may be documented in an alternate section FOR RECORDS PERTAINING TO PATIENTS WHO ARE [...] BE BASED ON THE PRIMARY CLINICAL RECORDS. [facility] [employer] provides no warranty or guarantee of the accuracy or completeness of information in this document.
[2025-06-14 12:41] LABS: AST(SGOT) 22 U/L (<=31); Alanine Aminotransfer ALT/SGPT 14 U/L (<=34); Albumin, Serum 3.8 g/dL (3.4-4.8); Alkaline Phosphatase 84 U/L (35-104); Anion Gap 9 (5-15); BUN 11 mg/dL (4-19); BUN/Creat Ratio 15.9 RATIO (10-20); Calcium,Total 10.3 mg/dL (7.6-11.0); Carbon Dioxide 27.9 mmol/L (21.0-32.0); Chloride 107 mmol/L (98-108); Cholesterol 203 mg/dL (<=200); Globulin 3.0 g/dL (2.2-4.2); Glucose 90 mg/dL (70-99); Low Density Lipoprotein Calc. 135 mg/dL; Potassium 4.7 mmol/L (3.3-5.1); Triglycerides 59 mg/dL; Very Low Density Lipoprotein 12 mg/dL (5-40); Vitamin D,25 Hydroxy 71.4 ng/mL (30-100); cholesterol:hdl ratio screen 3.53
== END | disposition home or self-care (01) ==
LOC: LAB 10:59
PROVIDERS: PCP Internal Medicine; Referring Provider Internal Medicine; Visit Provider Internal Medicine
DX: E78.5 Hyperlipidemia, unspecified (principal); M81.0 Age-related osteoporosis without current pathological fracture
CPT/HCPCS: 36415; 80053; 80061; 82306; 85025